=== PATIENT | female | born 1935 | race Caucasian/White ===

== ENCOUNTER 2017-09-06 06:34 | Day surgery (SDC) | payer MEDICARE, OTHER ==
[2017-09-05 11:12] VITALS: BMI 28.7
[2017-09-06 07:30] LABS: #Basophils 0.1 thou/uL (0.0-0.2); #Eosinphils 0.5 thou/uL (0.0-0.7); #Monocytes 0.6 thou/uL (0.11-0.59); #Neutrophils 2.3 thou/uL (1.40-6.50); %Basophils 1.3 % (0.0-1.0); %Eosinophils 8.3 % (0.0-10.0); %Lymphocytes 37.5 % (21.0-51.0); %Monocytes 10.1 % (0.0-10.0); %Neutrophils 42.7 % (42.0-75.0); Hemoglobin 12.5 g/dL (12.0-16.0); Mean Corpuscular HGB CONC 32.3 g/dL (32.0-36.0); Mean Corpuscular Hemoglobin 28.4 pg (27.0-31.0); Mean Corpuscular Volume 87.8 fl (81.0-99.0); Mean Platelet Volume 7.9 fL (7.4-10.4); Platelet Count 247 thou/uL (130-400); RBC Distribution Width 12.9 % (11.5-14.5); White Blood Cell (WBC) Count 5.4 thou/uL (4.8-10.8)
--- NOTE | 2017-09-06 07:41 | RAD ---
CHEST PA AND LATERAL: HISTORY: An 81-year-old female with a history for postop midline sternotomy. Atherosclerosis of the aorta. E vidence for hiatal hernia. Heart size is within normal limits. Mild increased markings bilaterally, but stable. No confluent pneumonia, overt edema, or other acute process. IMPRESSION: No acute intrathoracic disease. Moderate-sized hiatal hernia. Atherosclerosis of the aorta with ect dashawn. Stable from prior study. POS: RIVER
[2017-09-06] MEDS ORDERED: Bupivacaine HCl 0.5%/Epinephrine 1:200,000/PF 30 ml Vial ONE (08:01)
[2017-09-06] MEDS ORDERED: Lidocaine 2% 10 ML INJ ONE (08:01)
[2017-09-06] MEDS ORDERED: Bupivacaine/Epinephrine 0.25% 30 ML VIAL ONE (08:01)
[2017-09-06 08:04] LABS: Anion Gap 11 mmol/L (10-20); BUN (Urea Nitrogen) 14 mg/dL (9.8-20.1); Calc. Creatinine Clearance 67 mL/min (70-130); Calcium 8.9 mg/dL (7.8-10.44); Carbon Dioxide 32 mmol/L (23-31); Chloride 102 mmol/L (98-107); Estimated GFR-MDRD 65; Glucose 92 mg/dL (83-110); Potassium 5.2 mmol/L (3.5-5.1); Sodium 140 mmol/L (136-145)
[2017-09-06] MEDS ORDERED: CEFAZOLIN/Water 2 GM/20 ML SYRINGE ONE (08:23)
[2017-09-06] MEDS ORDERED: Fentanyl 100 MCG/2 ML VIAL ONE (09:25)
--- NOTE | 2017-09-06 10:19 | OP ---
DATE OF PROCEDURE: 09/06/2017 PREOPERATIVE DIAGNOSIS: Painful radial head, left. POSTOPERATIVE DIAGNOSIS: Painful radial head, left. SURGEON: Librado Allison M.D. ANESTHESIA: General. BLOOD LOSS: Minimal. SPECIMEN: None. DRAINS: None. COMPLICATIONS: None. PROCEDURE IN DETAIL: The patient was taken to the operating room where general anesthesia was induce d. Left arm was prepped and draped in usual sterile fashion. Exsanguination, tourniquet was inflate d to 250 mmHg. I infiltrated the skin with Marcaine with epinephrine. Dissection carried down throug h the old scar to the common extensor origin into the joint. The radial head was mobilized and excis ed without difficulty. Marcaine was injected into the soft tissues around the joint. Irrigation per formed. Hemostasis obtained. Tourniquet was released. Soft tissue repaired the capsule with #1 Willie ryl, subcu with 2-0 Vicryl, and the skin was closed with nancy.
--- NOTE | 2017-09-06 12:47 | EKG ---
Test Reason : PREOP Blood Pressure : / mmHG Vent. Rate : 063 BPM Atrial Rate : 063 BPM P-R Int : 218 ms QRS Dur : 106 ms QT Int : 434 ms P-R-T Axes : 051 014 050 degrees QTc Int : 444 ms Sinus rhythm with 1st degree A-V block Otherwise normal ECG When compared with ECG of 22-MAY-2016 12:45, ME interval has increased Incomplete right bundle branch block is no longer Present Confirmed by FELISA NGUYEN ([id number]) on 09/06/2017 12:46:29 PM Referred By: RUPA Confirmed By:FELISA NGUYEN
[2017-09-06] MEDS ORDERED: Dexamethasone 20 MG/5 ML VIAL ONE (15:57)
[2017-09-06] MEDS ORDERED: Ondansetron HCl/PF 4 MG/2 ML Vial ONE (15:57)
[2017-09-06] MEDS ORDERED: Lidocaine 1% PF 5 ML VIAL ONE (15:57)
[2017-09-06] MEDS ORDERED: PROPOFOL 200 MG/20 ML VIAL ONE (15:57)
== END 2017-09-06 11:30 | disposition home or self-care (01) ==
LOC: SDC 06:34
PROVIDERS: ATTEND Orthopaedic Surgery
PROC: 0RP Upper Joints, Removal (ICD-10-PCS; principal; 2017-09-06)
DX: T84.84XA Pain due to internal orthopedic prosthetic devices, implants and grafts, initial encounter (principal); M19.022 Primary osteoarthritis, left elbow; I25.10 Atherosclerotic heart disease of native coronary artery without angina pectoris; F41.9 Anxiety disorder, unspecified; I10 Essential (primary) hypertension; E78.5 Hyperlipidemia, unspecified; G47.33 Obstructive sleep apnea (adult) (pediatric); Z79.82 Long term (current) use of aspirin; Z79.899 Other long term (current) drug therapy; Z79.52 Long term (current) use of systemic steroids
CPT/HCPCS: 71046; 80048; 85025; 93005; 93010; J0670; J1100; J2001; J2405; J2704; J3010

== ENCOUNTER 2018-03-03 12:04 | Inpatient (IN) | payer MEDICARE, OTHER ==
[2018-03-03] MEDS ORDERED: cefTRIAXone\\ROCEPHIN 2 GM VIAL ONE (12:30)
[2018-03-03 12:49] LABS: #Lymphocytes 0.7 thou/uL (1.20-3.40); #Monocytes 0.8 thou/uL (0.11-0.59); #Neutrophils 13.8 thou/uL (1.40-6.50); %Eosinophils 0.1 % (0.0-10.0); %Lymphocytes 4.6 % (21.0-51.0); %Monocytes 5.1 % (0.0-10.0); %Neutrophils 90.2 % (42.0-75.0); Hemoglobin 12.5 g/dL (12.0-16.0); Mean Corpuscular HGB CONC 32.1 g/dL (32.0-36.0); Mean Corpuscular Hemoglobin 28.6 pg (27.0-31.0); Mean Platelet Volume 8.8 fL (7.4-10.4); Platelet Count 237 thou/uL (130-400); RBC Distribution Width 13.1 % (11.5-14.5); Red Blood Cell (RBC) Count 4.37 mill/uL (4.20-5.40); White Blood Cell (WBC) Count 15.3 thou/uL (4.8-10.8)
[2018-03-03 13:15] LABS: ALT (SGPT) 12 U/L (8-55); AST (SGOT) 21 U/L (5-34); Albumin 3.5 g/dL (3.4-4.8); Alkaline Phosphatase 80 U/L (40-150); Anion Gap 13 mmol/L (10-20); BUN (Urea Nitrogen) 15 mg/dL (9.8-20.1); Bilirubin, Total 0.7 mg/dL (0.2-1.2); Calc. Creatinine Clearance 0 mL/min (70-130); Calcium 8.2 mg/dL (7.8-10.44); Carbon Dioxide 20 mmol/L (23-31); Chloride 105 mmol/L (98-107); Estimated GFR-MDRD 49; Globulin 2.6 g/dL (2.4-3.5); Glucose 104 mg/dL (83-110); Protein, Total 6.1 g/dL (6.0-8.3); Sodium 134 mmol/L (136-145)
--- NOTE | 2018-03-03 13:35 | RAD ---
PORTABLE AP CHEST XRAY: DATE: 03/03/2018. HISTORY: Fever and sepsis. COMPARISON: 05/22/2016. FINDINGS: Postsurgical changes related to median sternotomy are again noted. Pacing pads overlie the chest sushant aterally. There is questionable parenchymal change within the right lung base, but this may be artif actual. The lungs otherwise appear clear. Cardiac silhouette is magnified by projection. The pulmo nary vasculature is within normal limits. IMPRESSION: No acute cardiopulmonary process. Pacing pads overlie the chest which limits evaluation. There is q uestionable parenchymal change within the right lung base, but this may be artifactual. Followup radha st x-ray may be beneficial for further evaluation. POS: RIVER
[2018-03-03] MEDS ORDERED: Azithromycin 500 MG VIAL ONE (14:07)
[2018-03-03 15:19] LABS: Bilirubin Negative (Negative); Blood, Urine Negative (Negative); Clarity CLEAR (Clear); Glucose, Urine (Dipstick) Negative (Negative); Leukocyte Negative (Negative); Nitrite Negative (Negative); Protein, Urine (Dipstick) Trace mg/dL (Neg-Trace); Specific Gravity, Urine 1.024 (1.002-1.036); Urobilinogen 0.2 mg/dL (0.2-1.0); pH, Urine 5.5 (5.0-9.0)
[2018-03-03] MEDS ORDERED: Sodium Chloride 0.9% 1,000 ML IV SCH ×2 (16:21→17:00)
[2018-03-03 16:22] VITALS: BMI 30.4
[2018-03-03] MEDS ORDERED: Benzonatate 100 MG CAP PO PRN (18:34)
[2018-03-03] MEDS ORDERED: PROVENTIL INHALER 6.7 G (200 INHALATIONS) INH PRN (18:34)
[2018-03-03] MEDS ORDERED: hydrALAZINE 20 MG/ML VIAL SLOW IVP PRN (18:34)
[2018-03-03] MEDS ORDERED: Diabetic Tussin 200 MG/10 ML UDCUP PO PRN (18:34)
[2018-03-03] MEDS ORDERED: Ondansetron PF 4 MG/2 ML Vial IVP PRN (18:34)
[2018-03-03] MEDS ORDERED: Ondansetron ODT 4 MG TAB PO PRN (18:34)
[2018-03-03] MEDS ORDERED: Acetaminophen 500 MG TAB PO PRN (18:34)
[2018-03-03] MEDS ORDERED: Fluticasone Propionate Nasal Spray 16 gm Bottle NASAL PRN (18:34)
[2018-03-03] MEDS ORDERED: Acetaminophen/Codeine 30-300mg Tablet PO PRN ×2 (18:34→18:58)
[2018-03-03] MEDS ORDERED: Morphine ER 15 MG TAB PO PRN (18:37)
[2018-03-03] MEDS ORDERED: Morphine ER 15 MG TAB PO SCH (18:45)
[2018-03-03] MEDS: Pravastatin Sodium 40 MG TAB PO SCH (20:04)
[2018-03-03] MEDS: Gabapentin 300 MG CAP PO SCH (20:09)
[2018-03-03] MEDS ORDERED: Famotidine 20 MG TAB PO SCH (21:00)
--- NOTE | 2018-03-04 01:14 | HP ---
PRIMARY CARE PROVIDER: Roland Richards MD CHIEF COMPLAINT: Fever and shortness of breath. HISTORY OF PRESENT ILLNESS: This is an 82-year-old female, who presents to [facility] Emergency Department in transport by EMS personnel after EMS were alerted when the patient was noted with fever up to 103.9 degrees Fahrenheit. The patient states she had felt cold symptoms, body aches, mild shortness of breath, and productive cough over the last 3 to 4 days. The patient also noted feeling dizzy and lightheaded with some shortness of breath. The family notified EMS personnel after alerting [facility], at which point the patient was transported to [facility] Emergency Department. During the patient's transport, the patient developed atrial fibrillation with rapid ventricular response with heart rates in the 130s. The patient received IV Cardizem bolus with decreasing heart rate into the 120s. The patient was also noted with hypotension after receiving Cardizem and required IV fluid boluses in the emergency room to maintain systolic blood pressures in the 100 range. The patient denies any known sick contacts or prior history of recurrent pneumonia and states she received influenza vaccine. The patient states she is unsure if she has received the pneumonia vaccination in the last 5 years. The patient denies any specific change to her chronic medication regimen, chronic oxygen use, recent trauma, injury, or hemoptysis. In the emergency room, the patient underwent general evaluation including chest imaging showing questionable infiltrate in the right lower lung zone. The patient was noted with sepsis criteria including tachycardia, elevated white blood cell count, and a temperature of 103.9 degrees Fahrenheit. The patient received IV azithromycin and Rocephin in addition to normal saline x2 L. The patient was transferred to the telemetry unit for further evaluation. PAST MEDICAL HISTORY: 1. Hypertension. 2. Hyperlipidemia. 3. Coronary artery disease. 4. Obstructive sleep apnea. 5. Depression. 6. Chronic narcotic use. 7. Osteoarthritis. PAST SURGICAL HISTORY: 1. Status post bilateral total shoulder replacement. 2. Status post coronary artery bypass grafting x2 vessels. 3. Status post left radial head repair. CURRENT MEDICATIONS: 1. Tylenol No. 4 of 300 mg/60 mg 1 to 2 tablets p.o. q.8 hours p.r.n. 2. Proventil HFA 2 puffs inhaled t.i.d. p.r.n. 3. Enteric-coated aspirin 81 mg p.o. daily. 4. Vitamin D3 of 2000 units p.o. daily. 5. Flonase nasal spray 2 sprays inhaled daily. 6. Lasix 40 mg p.o. daily. 7. Gabapentin 300 mg p.o. q.8 hours. 8. Losartan 25 mg p.o. daily. 9. Morphine sulfate 15 mg extended release p.o. q.8 hours p.r.n. 10. Multivitamin 1 tablet p.o. daily. 11. Pravachol 80 mg p.o. at bedtime. 12. Coenzyme Q10 one capsule p.o. daily. 13. Effexor 75 mg p.o. daily. ALLERGIES: NO KNOWN DRUG ALLERGIES. FAMILY HISTORY: No inheritable diseases per the patient report. SOCIAL HISTORY: The patient resides in [place], [place]. , accompanied by her grandson in the hospital. No alcohol, tobacco, or illicit drug use. Functional of all activities of daily living. Ambulates without assistive device. REVIEW OF SYSTEMS: CONSTITUTIONAL: Negative for weight loss or gain, ability to conduct usual activities. SKIN: Negative for rash, itching. EYES: Negative for double vision, pain. ENT/MOUTH: Negative for nose bleeding, neck stiffness, pain, tenderness. CARDIOVASCULAR: Negative for palpitations, dyspnea on exertion, orthopnea. RESPIRATORY: Negative for shortness of breath, wheezing, cough, hemoptysis, fever or night sweats. GASTROINTESTINAL: Negative for poor appetite, abdominal pain, heartburn, nausea, vomiting, constipation, or diarrhea. GENITOURINARY: Negative for urgency, frequency, dysuria, nocturia. MUSCULOSKELETAL: Negative for pain, swelling. NEUROLOGIC/PSYCHIATRIC: Negative for anxiety, depression. ALLERGY/IMMUNOLOGIC: Negative for skin rash, bleeding tendency. Otherwise, negative except as stated per HPI. PHYSICAL EXAMINATION: VITAL SIGNS: On admission; blood pressure 121/72, pulse 118, respiratory rate 18, temperature 99.1 degrees Fahrenheit, T-max of 103.9 degrees Fahrenheit, and O2 saturation 94% on room air. GENERAL APPEARANCE: This is an 82-year-old female, alert and oriented x3, pleasant, conversant, in no acute distress. HEENT: Pupils are equal, round, and reactive to light and accommodation. Extraocular muscles are intact. No scleral icterus. No conjunctival injection. Nares patent. OP is clear. Teeth in good repair. NECK: Supple. No cervical adenopathy. No thyromegaly. No carotid bruits. No JVD appreciated. Cervical spine with full active and passive range of motion. No meningeal signs appreciated. CHEST: Lungs with bibasilar coarse breath sounds. CARDIOVASCULAR: S1 and S2 with irregular rate and rhythm. No murmur or rub appreciated. ABDOMEN: Rounded, soft, nontender, and nondistended. Bowel sounds are positive in all 4 quadrants. There is no hepatosplenomegaly. No abdominal bruits. No rebound or guarding appreciated. EXTREMITIES: Warm and dry with fair turgor. Mild edema to the mid shins bilaterally. Pulses are palpable distally at the dorsalis pedis, posterior tibial, and popliteal arteries bilaterally. Capillary refill less than 2 seconds. NEUROLOGIC: Cranial nerves 2 through 12 are grossly intact. No focal or lateralizing signs appreciated. PERTINENT LAB AND X-RAY FINDINGS: Sodium 134, potassium 4.0, chloride 105, CO2 of 20, BUN 15, creatinine 1.07, estimated GFR 49, and glucose 104. Lactic acid level 1.6. LFTs within normal limits. CBC showed a white blood cell count of 15.3, hemoglobin 12.5, hematocrit 39, and platelet count 237 with 90% neutrophilia. Urinalysis showed trace ketones. Influenza A/B antigen, dated 03/03/2018, negative. Portable chest x-ray dated 03/03/2018 showed questionable parenchymal changes in the right lung base. EKG dated 03/03/2018 by my interpretation shows atrial fibrillation with rapid ventricular response. Heart rates in the 130s. Attenuated R-waves noted in the precordial leads. Normal axis. ASSESSMENT AND PLAN: 1. Sepsis secondary to pneumonia. We will continue general sepsis protocol. Initial lactic acid level normal. We will continue IV fluids and IV antibiotics as outlined. 2. Right lower lobe community-acquired pneumonia. Suspect bacterial in nature with pneumococcal species. Continue Levaquin 750 mg IV q.24 hours. Blood cultures pending x2. Continue general pulmonary supportive management. Bronchodilator therapy. 3. Atrial fibrillation with rapid ventricular response. Appears new onset. We will consult Cardiology Service for further evaluation. Check 2D transthoracic echocardiogram, magnesium, and TSH level. Continue rate control measures. 4. Hypertension. Resume home antihypertensive regimen and monitor clinical response. 5. Chronic narcotic therapy. We will monitor for signs of withdrawal. Morphine sulfate 15 mg p.o. q.8 hours p.r.n. 6. Prophylaxis. Sequential compression devices while in bed. Pepcid 20 mg p.o. b.i.d. 7. Code status is full. Surrogate medical decision maker is the patient's spouse. Job ID: [id number]
[2018-03-04] MEDS: Gabapentin 300 MG CAP PO SCH ×3 (05:32→21:05)
[2018-03-04 06:16] LABS: Anion Gap 9 mmol/L (10-20); BUN (Urea Nitrogen) 14 mg/dL (9.8-20.1); Calc. Creatinine Clearance 70 mL/min (70-130); Calcium 8.3 mg/dL (7.8-10.44); Carbon Dioxide 22 mmol/L (23-31); Chloride 108 mmol/L (98-107); Estimated GFR-MDRD 64; Glucose 86 mg/dL (83-110); Magnesium 1.9 mg/dL (1.6-2.6); Sodium 135 mmol/L (136-145)
[2018-03-04 07:39] LABS: Hemoglobin 11.4 g/dL (12.0-16.0); Mean Corpuscular HGB CONC 31.4 g/dL (32.0-36.0); Mean Corpuscular Hemoglobin 28.1 pg (27.0-31.0); Mean Corpuscular Volume 89.5 fL (78.0-98.0); Mean Platelet Volume 9.3 fL (7.4-10.4); Platelet Count 160 thou/uL (130-400); RBC Distribution Width 13.3 % (11.5-14.5); Red Blood Cell (RBC) Count 4.06 mill/uL (4.20-5.40); White Blood Cell (WBC) Count 8.6 thou/uL (4.8-10.8)
[2018-03-04 07:47] LABS: Band 5 % (5-11); Lymphocytes 19 % (21-51); MDiff Complete? YES; Monocytes 4 % (0-10); Neutrophil 72 % (42-75); PLT Morphology Comment Appears Adequate; Polychromasia SLIGHT = 2-3 cells (100X) (0-2/hpf)
[2018-03-04] MEDS: Losartan 25 MG TAB PO SCH (08:22)
[2018-03-04] MEDS: Furosemide 40 MG TAB PO SCH (08:22)
[2018-03-04] MEDS: Aspirin 81 mg Enteric Coated Tablet PO SCH (08:23)
[2018-03-04] MEDS ORDERED: Prevnar 13-Val Conj/PF 0.5 ML SYRINGE IM ONE (09:00)
[2018-03-04] MEDS ORDERED: Enoxaparin Sodium 80 MG/0.8 ML SYRINGE SC SCH ×2 (10:27→11:30)
[2018-03-04] MEDS ORDERED: Flecainide 50 MG TAB PO SCH ×2 (10:32→11:30)
[2018-03-04] MEDS ORDERED: Digoxin 0.5 MG/2 ML AMP SLOW IVP SCH (11:30)
--- NOTE | 2018-03-04 15:21 | PDOC.PN ---
- Subjective Encounter Start Date: 03/04/18 Encounter Start Time: 15:20 Subjective: f/u for CAP, sepsis and A-fib RVR. Tx with Levaquin and bronchodilators. -: Remains in A-fib RVR on Digoxin, Tambocor and Lovenox. - Objective Resuscitation Status - Order Detail: 03/03/18 18:26 Resuscitation Status Routine Resuscitation Status: FULL: Full Resuscitation MAR Reviewed: Yes Vital Signs & Weight: Vital Signs (12 hours) Temp Pulse Resp BP Pulse Ox 03/04/18 11:50 104 H 18 144/82 H 98 03/04/18 11:40 98.7 F 128 H 20 119/68 98 03/04/18 08:15 99.0 F 128 H 20 143/82 H 93 L 03/04/18 03:33 99 F 99 20 127/76 92 L Weight Weight 191 lb 6.4 oz I&O: 03/03/18 03/04/18 03/05/18 06:59 06:59 06:59 Intake Total 1835 Output Total 300 Balance 1535 Result Diagrams: 03/04/18 05:31 03/04/18 05:31 Additional Labs: Microbiology 03/03/18 12:32 Nasal swab Influenza Types A,B Direct EIA - Final 03/03/18 12:19 Venous blood - Left Hand Blood Culture - Preliminary Specimen has been received and culture in progress. No Growth to date. 03/03/18 12:19 Venous blood - Left Arm Blood Culture - Preliminary Specimen has been received and culture in progress. No Growth to date. Laboratory Tests 03/03/18 03/03/18 03/04/18 12:27 12:27 05:31 WBC 15.3 H Hgb 12.5 Sodium 134 L Magnesium 1.9 TSH 3rd Generation 03/04/18 05:31 WBC Hgb Sodium Magnesium TSH 3rd Generation 1.4064 EKG Reviewed by me: Yes (Tele - A-fib in low 100's) Phys Exam - Physical Examination Constitutional: NAD HEENT: PERRLA, sclera anicteric, oral pharynx no lesions Neck: no nodes, no JVD, supple, full ROM bibasilar coarse sounds Respiratory: no wheezing, clear to auscultation bilateral tachycardic S1, S2 Cardiovascular: irregular Gastrointestinal: soft, non-tender, no distention, positive bowel sounds Musculoskeletal: no edema, pulses present Neurological: normal sensation, moves all 4 limbs Psychiatric: normal affect, A&O x 3 Skin: normal turgor, cap refill <2 seconds Dx/Plan (1) Sepsis Code(s): A41.9 - SEPSIS, UNSPECIFIED ORGANISM Status: Acute Qualifiers: Sepsis type: Pneumococcus Qualified Code(s): A40.3 - Sepsis due to Streptococcus pneumoniae Comment: Suspected due to strep pneumo spp, continue Levaquin 750mg IV q48h (2) Atrial fibrillation with RVR Code(s): I48.91 - UNSPECIFIED ATRIAL FIBRILLATION Status: Acute Comment: Rate variable, continue Digoxin, Tambocor, Lovenox, 2D echo pending (3) PNA (pneumonia) Code(s): J18.9 - PNEUMONIA, UNSPECIFIED ORGANISM Status: Acute Qualifiers: Pneumonia type: due to Pneumococcus Laterality: bilateral Comment: Suspected bacterial PNA with steptococcal spp, pulmonary supportive measures, Levaquin 750mg IV q48h (4) Chronic narcotic use Code(s): F11.90 - OPIOID USE, UNSPECIFIED, UNCOMPLICATED Status: Chronic Comment: Continue Morphine sulfate (5) HTN (hypertension) Code(s): I10 - ESSENTIAL (PRIMARY) HYPERTENSION Status: Chronic Qualifiers: Hypertension type: essential hypertension Qualified Code(s): I10 - Essential (primary) hypertension Comment: Continue home BP regimen, titrate to optimal response - Plan continue antibiotics, PT/OT, social services coordinator, respiratory therapy, out of bed/ ambulate, DVT proph w/SCDs Stable currently -: Continue Levaquin 750mg q48h -: Continue rate-control strategy with Digoxin/Tambocor -: Continue Lovenox -: 2D echo pending * Likely home in 24-48h
[2018-03-04] MEDS: Digoxin 0.5 MG/2 ML AMP SLOW IVP SCH ×2 (17:50→23:44)
--- NOTE | 2018-03-04 18:42 | CON ---
DATE OF CONSULTATION: 03/04/2018 INDICATION FOR CONSULTATION: An 82-year-old female with a new onset atrial fibrillation. HISTORY OF PRESENT ILLNESS: This is a very pleasant 82-year-old female, who I saw originally back in January 15, 2018. She previously was followed by Dr. Morrell. She underwent bypass surgery in the past due to severe 2-vessel coronary artery disease, this was in 2013. Since that time, apparently she has been doing quite well. She has had some episodes of some chest discomfort and underwent stress testing also on January 15, 2018. Upon nuclear evaluation, it was not found to have any evidence of ischemia. She at that time also had a normal EKG, which showed normal sinus rhythm. Her ejection fraction was 61% by nuclear study and there was no evidence of ischemia or any wall motion abnormalities. She, apparently over the weekend, thought she was getting a cold. She felt cold all day on Saturday and then eventually called her neighbor, who found that she had a temperature of a 103.5, and then the primary care physician was called and she was advised to go to the emergency room. On the way to the emergency room apparently by ambulance, she developed atrial fibrillation with a rapid ventricular response. At this time, she continues to be in atrial fibrillation. Her heart rate this morning was still somewhat tachycardic. She then placed on IV diltiazem. Also notably, she has had hypotension associated with this. At present, she is on no IV diltiazem that I can determine. She is not on any medications for lowering of the heart rate. She has been given antibiotics. Otherwise, she is not on any beta blockers or on diltiazem or even digoxin. She was asymptomatic with a rapid heart rate and she still remains asymptomatic. She says she was coughing up a little bit of dark brown material, but she was actually coughing over the weekend also. She denied any chest pain or shortness of breath. PAST MEDICAL HISTORY: Her past medical history is significant for coronary artery disease, bypass grafting in 2013 as noted. She had a recent stress test, which was unremarkable. She has hypertension. She had a tubal . She had a tonsillectomy, left rotator cuff repair, and right elbow joint replacement. She has history of hypercholesterolemia. She has arthritis with knee pain. ALLERGIES: NONE. MEDICATIONS: Her medications prior to admission included; 1. Norvasc 10 mg a day. 2. Losartan 100 mg a day. 3. CoQ10. 4. Venlafaxine ER 75 mg once a day. 5. Vitamin D3. 6. Aspirin 81 mg a day. 7. Meloxicam 15 mg a day. 8. Pravastatin 80 mg a day. 9. Gabapentin 300 mg t.i.d. 10. Morphine 15 mg immediate release tablet as needed once every 12 hours. 11. Mirtazapine 15 mg once a day before bedtime. FAMILY HISTORY: Noncontributory. REVIEW OF SYSTEMS: A 12-point review of system is unremarkable, except what is noted in the history of present illness. She mainly complains of occasional aches and pains. She had a coughing, but she was asymptomatic with the atrial fibrillation. She denies any other symptoms. She has been taking care of her son as well as her . PHYSICAL EXAMINATION: GENERAL: Reveals a well-developed, well-nourished, very pleasant female. VITAL SIGNS: Her blood pressure is 142/82, heart rate is anywhere between 100 to 128, temperature today is 99, and O2 saturation is 93%. HEENT: Exam shows the head to be normocephalic and atraumatic. Carotid pulses are present. I did not hear any significant bruits. CHEST: I did not hear any significant rales, rhonchi, or wheezing. CARDIOVASCULAR: Reveals a tachycardia, which is irregular. There were no gross murmurs noted. ABDOMEN: Shows obesity with positive bowel sounds. No organomegaly or masses were noted. EXTREMITIES: Femoral pulses are present. Popliteal pulses are present. Pedal pulses somewhat difficult to palpate. She has a well-healed surgical incision of the left leg after saphenous vein graft retrieval. She has also well-healed incisions of the knees after apparently knee surgery. SKIN: Warm and dry. NEUROLOGIC: She appears to be fully intact. She has normal strength and normal tone. She does not need assistance to either sit up or get out of the bed. IMPRESSION AND PLAN: 1. New onset atrial fibrillation with rapid ventricular response. We will need to start oral medications to the heart rate, most likely this was exacerbated by her probable pneumonia or infection with a temperature of 103. There were no significant gross abnormalities noted on the chest x-ray, that would indicate pneumonia. At this time, we will decide, which medications to use. Hopefully convert her from her atrial fibrillation back to sinus rhythm as soon as possible. We will start her on Multaq to see if this will convert her back to sinus rhythm. 2. Hypertension. We will need also to address her medications and make sure she is taking her medications and try to keep at least the systolic blood pressure under 140, preferably under 130. 3. Febrile state of uncertain etiology. This is being evaluated by the primary care service. 4. Her kidney function does not appear to be significantly abnormal. She did have an elevated white blood cell count for her possible sepsis 15.3, this morning is down to 8.6. She has been given antibiotics. 5. Coronary artery disease, which appears to be stable. She had bypass surgery in 2013. She had a recent negative stress test. We will be more than happy to continue to follow the patient with you. We will try to convert her from atrial fibrillation back to sinus rhythm as soon as possible. Also would advise that she have at least anticoagulation in the meantime. We can try subcu Lovenox. The last echocardiogram that was in record was in 2013, which showed ejection fraction 55% with moderate tricuspid valve regurgitation, mild mitral valve regurgitation, and mild aortic valve regurgitation. She has a normal ejection fraction by echocardiogram and by stress testing just recently and had a normal EKG also on January 15, 2018 without any evidence of ischemia and no other significant abnormalities. She did have an RSR prime in V1 and V2, but otherwise unremarkable EKG. Obtain echocardiogram for evaluation of her left atrial size to see if this is increased and if so, she may need to opt for perhaps EP consultation and ablation of the atrial fibrillation. As far as her other medical problems are concerned, these will be dealt with by the primary care service. Job ID: [id number]
[2018-03-04] MEDS: Famotidine 20 MG TAB PO SCH (20:54)
[2018-03-04] MEDS: Enoxaparin Sodium 80 MG/0.8 ML SYRINGE SC SCH (20:54)
[2018-03-04] MEDS: Pravastatin Sodium 40 MG TAB PO SCH (20:54)
[2018-03-04] MEDS: Flecainide 50 MG TAB PO SCH (20:54)
[2018-03-04] MEDS: Temazepam 15 MG CAP PO SCH (20:54)
[2018-03-05] MEDS: Gabapentin 300 MG CAP PO SCH ×3 (05:30→21:09)
[2018-03-05] MEDS ORDERED: Clopidogrel Bisulfate 75 MG TAB ONE (07:34)
[2018-03-05] MEDS: Digoxin 0.125 MG TAB PO SCH (08:34)
[2018-03-05] MEDS: Flecainide 50 MG TAB PO SCH ×2 (08:37→21:07)
[2018-03-05] MEDS: Furosemide 40 MG TAB PO SCH (08:38)
[2018-03-05] MEDS: Aspirin 81 mg Enteric Coated Tablet PO SCH (08:38)
[2018-03-05] MEDS: Losartan 25 MG TAB PO SCH (08:38)
[2018-03-05] MEDS: Enoxaparin Sodium 80 MG/0.8 ML SYRINGE SC SCH ×2 (08:39→21:05)
--- NOTE | 2018-03-05 11:22 | PDOC.CTH ---
<Anju Cesar - Last Filed: 03/05/18 11:31> Cardiology Progress Note - Subjective The pt seen and examined. No overnight events. No cardiac complaints. - Objective Vital Signs Temp Pulse Resp BP Pulse Ox 03/05/18 08:34 82 03/05/18 08:00 98.1 F 82 18 162/88 H 94 L 03/05/18 04:00 97.9 F 80 17 103/59 L 93 L 03/04/18 23:44 84 Weight 190 lb 9.6 oz 03/04/18 03/05/18 03/06/18 06:59 06:59 06:59 Intake Total 1835 1220 Output Total 300 2100 Balance 1535 -880 - Physical Examination General/Neuro: alert & oriented x3 Neck: no JVD present Lungs: CTA Heart: RRR Abdomen: soft Extremities: other: (no edema) - Telemetry Telemetry Rhythm: AFib 60-70s - Labs Result Diagrams: 03/04/18 05:31 03/04/18 05:31 - Assessment/Plan 1. Afib with RVR - Well cont. HR with Digoxin 0.125mg qd and Flecainide 50mg BID. On Lovenox BID. Will start Coreg 3.125mg BID. Plan MOODY and DCCV tomorrow by Dr Zepeda. 2. CAD with hx of CABG in 2013 - stable with ASA, statin, and ARB. Will start BBlocker from today. 3. Sepsis - On ABX IV, managed by PCP 4. Chronic diastolic HF - Echo on 03/04/18 showed EF 50-55% and Restrictive diastolic dysfunction. Stable with Lasix and ARB; will start low dose BBlocker from today. 5. HTN - stable 6. Hyperlipidemia - on Statin MAR reviewed * Echo on 03/04/18 showed EF 50-55%, Restrictive diastolic dysfunction, mild ERV, mod-severe dilated LA, mild-mod MR, mild AR, mild MT, and severe TR. * Plan for MOODY and DCCV tomorrow by Dr Zepeda. Review of Systems - Review of Systems Constitutional: reports: no symptoms reported EENTM: reports: no symptoms reported Respiratory: reports: no symptoms reported Cardiac (ROS): reports: no symptoms reported ABD/GI: reports: no symptoms reported : reports: no symptoms reported Musculoskeletal: reports: no symptoms reported <Zepeda,G Raj - Last Filed: 03/05/18 13:10> Cardiology Progress Note - Objective Vital Signs Temp Pulse Resp BP Pulse Ox 03/05/18 08:34 82 03/05/18 08:00 98.1 F 82 18 162/88 H 94 L 03/05/18 04:00 97.9 F 80 17 103/59 L 93 L Weight 190 lb 9.6 oz 03/04/18 03/05/18 03/06/18 06:59 06:59 06:59 Intake Total 1835 1220 Output Total 300 2100 Balance 1535 -880 - Labs Result Diagrams: 03/04/18 05:31 03/04/18 05:31 - Assessment/Plan pt.seen and eval.by me.Saige with the A/P by the [employer].If she does not converrt to NSR by AM then plan for cardioversion. Chest clear anteriorly.Irreg/irreg.
[2018-03-05] MEDS ORDERED: Carvedilol 3.125 MG TAB PO SCH (12:30)
--- NOTE | 2018-03-05 12:52 | PDOC.PN ---
- Subjective Encounter Start Date: 03/05/18 Encounter Start Time: 12:40 Subjective: f/u for CAP, sepsis and A-fib rate controlled currently. Feels better -: overall. Receiving Levaquin and Albuterol. - Objective Resuscitation Status - Order Detail: 03/03/18 18:26 Resuscitation Status Routine Resuscitation Status: FULL: Full Resuscitation MAR Reviewed: Yes Vital Signs & Weight: Vital Signs (12 hours) Temp Pulse Resp BP Pulse Ox 03/05/18 08:34 82 03/05/18 08:00 98.1 F 82 18 162/88 H 94 L 03/05/18 04:00 97.9 F 80 17 103/59 L 93 L Weight Weight 190 lb 9.6 oz I&O: 03/04/18 03/05/18 03/06/18 06:59 06:59 06:59 Intake Total 1835 1220 Output Total 300 2100 Balance 1535 -880 Result Diagrams: 03/04/18 05:31 03/04/18 05:31 Additional Labs: Microbiology 03/03/18 12:32 Nasal swab Influenza Types A,B Direct EIA - Final 03/03/18 12:19 Venous blood - Left Hand Blood Culture - Preliminary Specimen has been received and culture in progress. No Growth to date. 03/03/18 12:19 Venous blood - Left Hand Blood Culture - Preliminary NO GROWTH AT 48 HOURS 03/03/18 12:19 Venous blood - Left Arm Blood Culture - Preliminary Specimen has been received and culture in progress. No Growth to date. 03/03/18 12:19 Venous blood - Left Arm Blood Culture - Preliminary NO GROWTH AT 48 HOURS Laboratory Tests 03/03/18 03/03/18 03/04/18 12:27 12:27 05:31 WBC 15.3 H Hgb 12.5 Sodium 134 L Magnesium 1.9 TSH 3rd Generation 03/04/18 05:31 WBC Hgb Sodium Magnesium TSH 3rd Generation 1.4064 Radiology Reviewed by me: Yes (2D echo - EF 50-55%, diast dysfxn, severe TR, RYLIE , mod MR) EKG Reviewed by me: Yes (Tele - A-fib in 70's) Phys Exam - Physical Examination Constitutional: NAD HEENT: PERRLA, sclera anicteric, oral pharynx no lesions Neck: no nodes, no JVD, supple, full ROM Respiratory: no wheezing, no rales, no rhonchi, clear to auscultation bilateral II/ LYNN LUSB, S1, S2 Cardiovascular: no rub, gallop, irregular Gastrointestinal: soft, non-tender, no distention, positive bowel sounds Musculoskeletal: no edema, pulses present Neurological: normal sensation, moves all 4 limbs Psychiatric: A&O x 3 Skin: normal turgor, cap refill <2 seconds Dx/Plan (1) Sepsis Code(s): A41.9 - SEPSIS, UNSPECIFIED ORGANISM Status: Acute Qualifiers: Sepsis type: Pneumococcus Qualified Code(s): A40.3 - Sepsis due to Streptococcus pneumoniae Comment: Suspected due to strep pneumo spp, continue Levaquin 750mg IV q48h (2) Atrial fibrillation with RVR Code(s): I48.91 - UNSPECIFIED ATRIAL FIBRILLATION Status: Acute Comment: Rate variable, continue Digoxin, Tambocor, Lovenox, plan for MOODY/cardioversion on 03/06/18 (3) PNA (pneumonia) Code(s): J18.9 - PNEUMONIA, UNSPECIFIED ORGANISM Status: Acute Qualifiers: Pneumonia type: due to Pneumococcus Laterality: bilateral Comment: Suspected bacterial PNA with steptococcal spp, pulmonary supportive measures, Levaquin 750mg IV q48h (4) Chronic narcotic use Code(s): F11.90 - OPIOID USE, UNSPECIFIED, UNCOMPLICATED Status: Chronic Comment: Continue Morphine sulfate (5) HTN (hypertension) Code(s): I10 - ESSENTIAL (PRIMARY) HYPERTENSION Status: Chronic Qualifiers: Hypertension type: essential hypertension Qualified Code(s): I10 - Essential (primary) hypertension Comment: Continue home BP regimen, titrate to optimal response - Plan plan discussed w/ family, continue antibiotics, social worker health services, respiratory therapy, out of bed/ambulate, DVT proph w/SCDs Stable currently -: Continue Levaquin IV another 24h -: Plan for MOODY/Cardioversion on 03/06/18 -: continue Lovenox -: continue Tambocor/Digoxin for rate control * Lab: Stool hemoccult
--- NOTE | 2018-03-05 15:29 | EKG ---
Test Reason : Blood Pressure : / mmHG Vent. Rate : 138 BPM Atrial Rate : 468 BPM P-R Int : 000 ms QRS Dur : 090 ms QT Int : 324 ms P-R-T Axes : 000 005 123 degrees QTc Int : 490 ms Atrial fibrillation with rapid ventricular response RSR' or QR pattern in V1 suggests right ventricular conduction delay Nonspecific ST and T wave abnormality , probably digitalis effect Abnormal ECG Confirmed by ARNOLD CRAMER, FRANCIS ([id number]), managing editor GLEN LEVIN ([id number]) on 03/05/2018 3:29:02 PM Referred By: Confirmed By:FRANCIS BARRETT MD
[2018-03-05] MEDS: Carvedilol 3.125 MG TAB PO SCH (17:49)
[2018-03-05] MEDS: Temazepam 15 MG CAP PO SCH (21:06)
[2018-03-05] MEDS: Famotidine 20 MG TAB PO SCH (21:07)
[2018-03-05] MEDS: Pravastatin Sodium 40 MG TAB PO SCH (21:07)
[2018-03-06] MEDS: Gabapentin 300 MG CAP PO SCH ×3 (06:36→20:31)
[2018-03-06] MEDS ORDERED: PROPOFOL 20 ML ONE (07:51)
--- NOTE | 2018-03-06 08:37 | OP ---
ELECTRICAL CARDIOVERSION: Date: 03/06/18 This is an 82-year-old female who presented with new onset atrial fibrillation. She was advised to un dergo electrical cardioversion as she has not converted back to sinus rhythm with medical management. She was taken to the recovery area where she underwent short-acting propofol. Using one attempt at 2 00 joules, she was successfully converted back to normal sinus rhythm. There were no complications of difficulties encountered. The patient tolerated the procedure well. IMPRESSION: Atrial fibrillation successfully converted to normal sinus rhythm.
[2018-03-06] MEDS: Aspirin 81 mg Enteric Coated Tablet PO SCH (09:41)
[2018-03-06] MEDS: Carvedilol 3.125 MG TAB PO SCH ×2 (09:41→16:46)
[2018-03-06] MEDS: Enoxaparin Sodium 80 MG/0.8 ML SYRINGE SC SCH (09:41)
[2018-03-06] MEDS: Digoxin 0.125 MG TAB PO SCH (09:41)
[2018-03-06] MEDS: Flecainide 50 MG TAB PO SCH ×2 (09:42→20:30)
[2018-03-06] MEDS: Losartan 25 MG TAB PO SCH (09:42)
[2018-03-06] MEDS: Furosemide 40 MG TAB PO SCH (09:42)
[2018-03-06] MEDS ORDERED: PROPOFOL 200 MG/20 ML VIAL ONE (13:42)
--- NOTE | 2018-03-06 15:25 | PDOC.PN ---
- Subjective Encounter Start Date: 03/06/18 Encounter Start Time: 15:15 Subjective: f/u for A-fib s/p cardioversion with current SR. Feels ok overall. -: No BM x > 1week. - Objective Resuscitation Status - Order Detail: 03/03/18 18:26 Resuscitation Status Routine Resuscitation Status: FULL: Full Resuscitation MAR Reviewed: Yes Vital Signs & Weight: Vital Signs (12 hours) Temp Pulse Resp BP Pulse Ox 03/06/18 11:55 98.9 F 64 16 112/59 L 94 L 03/06/18 09:22 96 03/06/18 09:17 97.4 F L 61 16 147/67 H 96 03/06/18 03:45 98.3 F 72 12 125/77 92 L Weight Weight 187 lb I&O: 03/05/18 03/06/18 03/07/18 06:59 06:59 06:59 Intake Total 1220 960 145 Output Total 2100 1800 0 Balance -880 -840 145 Result Diagrams: 03/04/18 05:31 03/04/18 05:31 Additional Labs: Microbiology 03/03/18 12:32 Nasal swab Influenza Types A,B Direct EIA - Final 03/03/18 12:19 Venous blood - Left Hand Blood Culture - Preliminary Specimen has been received and culture in progress. No Growth to date. 03/03/18 12:19 Venous blood - Left Hand Blood Culture - Preliminary NO GROWTH AT 48 HOURS 03/03/18 12:19 Venous blood - Left Arm Blood Culture - Preliminary Specimen has been received and culture in progress. No Growth to date. 03/03/18 12:19 Venous blood - Left Arm Blood Culture - Preliminary NO GROWTH AT 48 HOURS Laboratory Tests 03/03/18 03/03/18 03/04/18 12:27 12:27 05:31 WBC 15.3 H Hgb 12.5 Sodium 134 L Magnesium 1.9 TSH 3rd Generation 03/04/18 05:31 WBC Hgb Sodium Magnesium TSH 3rd Generation 1.4064 Radiology Reviewed by me: Yes (2D echo - EF 55%, diast dysfn, severe LAE) EKG Reviewed by me: Yes (Tele - SR) Phys Exam - Physical Examination Constitutional: NAD HEENT: PERRLA, sclera anicteric, oral pharynx no lesions Neck: no nodes, no JVD, supple, full ROM Respiratory: no wheezing, no rales, no rhonchi, clear to auscultation bilateral II/ LNYN, S1, S2 Cardiovascular: RRR, no rub, gallop Gastrointestinal: soft, non-tender, no distention, positive bowel sounds Musculoskeletal: no edema, pulses present Neurological: normal sensation, moves all 4 limbs Psychiatric: A&O x 3 Skin: normal turgor, cap refill <2 seconds Dx/Plan (1) Sepsis Code(s): A41.9 - SEPSIS, UNSPECIFIED ORGANISM Status: Acute Qualifiers: Sepsis type: Pneumococcus Qualified Code(s): A40.3 - Sepsis due to Streptococcus pneumoniae Comment: Suspected due to strep pneumo spp, change Levaquin 750mg po q48h (2) Atrial fibrillation with RVR Code(s): I48.91 - UNSPECIFIED ATRIAL FIBRILLATION Status: Acute Comment: Current SR s/p cardioversion, continue Digoxin, Tambocor, Lovenox (3) PNA (pneumonia) Code(s): J18.9 - PNEUMONIA, UNSPECIFIED ORGANISM Status: Acute Qualifiers: Pneumonia type: due to Pneumococcus Laterality: bilateral Comment: Suspected bacterial PNA with steptococcal spp, pulmonary supportive measures, Levaquin 750mg po q48h (4) Chronic narcotic use Code(s): F11.90 - OPIOID USE, UNSPECIFIED, UNCOMPLICATED Status: Chronic Comment: Continue Morphine sulfate (5) HTN (hypertension) Code(s): I10 - ESSENTIAL (PRIMARY) HYPERTENSION Status: Chronic Qualifiers: Hypertension type: essential hypertension Qualified Code(s): I10 - Essential (primary) hypertension Comment: Continue home BP regimen, titrate to optimal response - Plan continue antibiotics, case management social worker, out of bed/ambulate, DVT proph w/SCDs Stable currently -: Convert Levaquin 750mg po daily -: Miralax/Senna today -: OOB/ambulate -: Start Xarelto 20mg po daily in am * Likely d/c home in am
[2018-03-06] MEDS ORDERED: Polyethylene Glycol 3350 17 GM Packet PO SCH (17:00)
--- NOTE | 2018-03-06 17:37 | PDOC.CTH ---
Cardiology Progress Note - Subjective No complaints. No new events over night. - Objective Vital Signs Temp Pulse Resp BP Pulse Ox 03/06/18 16:40 97.9 F 59 L 16 134/61 96 03/06/18 11:55 98.9 F 64 16 112/59 L 94 L 03/06/18 09:22 96 03/06/18 09:17 97.4 F L 61 16 147/67 H 96 Weight 187 lb 03/05/18 03/06/18 03/07/18 06:59 06:59 06:59 Intake Total 1220 960 145 Output Total 2100 1800 0 Balance -880 -840 145 - Physical Examination General/Neuro: alert & oriented x3 Neck: no JVD present Lungs: CTA Heart: other: (irreg/irreg.) Abdomen: NT/ND - Labs Result Diagrams: 03/04/18 05:31 03/04/18 05:31 - Assessment/Plan 1. Afib with RVR - Well cont. HR with Digoxin 0.125mg qd and Flecainide 50mg BID. On Lovenox BID. Will start Coreg 3.125mg BID. Plan DCCV today. 2. CAD with hx of CABG in 2013 - stable with ASA, statin, and ARB. Will start BBlocker from today. 3. Sepsis - On ABX IV, managed by PCP 4. Chronic diastolic HF - Echo on 03/04/18 showed EF 50-55% and Restrictive diastolic dysfunction. Stable with Lasix and ARB; will start low dose BBlocker from today. 5. HTN - stable 6. Hyperlipidemia - on Statin MAR reviewed * Echo on 03/04/18 showed EF 50-55%, Restrictive diastolic dysfunction, mild ERV, mod-severe dilated LA, mild-mod MR, mild AR, mild [place], and severe TR.
[2018-03-06] MEDS: Famotidine 20 MG TAB PO SCH (20:30)
[2018-03-06] MEDS: Pravastatin Sodium 40 MG TAB PO SCH (20:30)
[2018-03-06] MEDS: Senokot S 8.6-50 MG TAB PO SCH (20:31)
[2018-03-06] MEDS: Temazepam 15 MG CAP PO SCH (20:31)
[2018-03-06] MEDS ORDERED: Enoxaparin Sodium 80 MG/0.8 ML SYRINGE SC SCH (21:00)
[2018-03-07] MEDS: Gabapentin 300 MG CAP PO SCH (05:40)
[2018-03-07] MEDS ORDERED: Rivaroxaban 10 MG TAB PO SCH (06:00)
[2018-03-07 08:48] VITALS: TEMP 98.2
[2018-03-07] MEDS: Losartan 25 MG TAB PO SCH (08:48)
[2018-03-07] MEDS: Aspirin 81 mg Enteric Coated Tablet PO SCH (08:49)
[2018-03-07] MEDS: Furosemide 40 MG TAB PO SCH (08:49)
[2018-03-07] MEDS: Senokot S 8.6-50 MG TAB PO SCH (08:49)
[2018-03-07] MEDS ORDERED: Losartan 25 MG TAB PO SCH (09:00)
--- NOTE | 2018-03-07 09:00 | PDOC.CTH ---
Cardiology Progress Note - Subjective The pt seen and examined. No overnight events. No cardiac complaints. - Objective Vital Signs Temp Pulse Resp BP BP Pulse Ox 03/07/18 08:42 98.2 F 58 L 18 178/79 H 96 03/07/18 03:45 97.9 F 60 19 161/70 H 92 L Weight 189 lb 03/06/18 03/07/18 03/08/18 06:59 06:59 06:59 Intake Total 960 645 Output Total 1800 500 Balance -840 145 - Physical Examination General/Neuro: alert & oriented x3 Neck: no JVD present Lungs: CTA Heart: RRR Abdomen: soft Extremities: other: (No edema) - Telemetry Telemetry Rhythm: SR - Labs Result Diagrams: 03/04/18 05:31 03/04/18 05:31 - Assessment/Plan 1. Afib with RVR with S/p MOODY and DCCV on 03/06/18 - Remains in SR since DCCV yesterday. On Digoxin 0.125mg qd, Flecainide 50mg BID, Coreg 3.125mg BID, and Xarelto, which changed to Eliquis 5mg BID (1 month coupon will be given to the pt at discharge). 2. CAD with hx of CABG in 2013 - stable with ASA, statin, and ARB. Will start BBlocker from today. 3. Sepsis - On ABX IV, managed by PCP 4. Chronic diastolic HF - Echo on 03/04/18 showed EF 50-55% and Restrictive diastolic dysfunction. Stable with Lasix and ARB; will start low dose BBlocker from today. 5. HTN - Increase Losartan from 25mg to 50mg qd from today. 6. Hyperlipidemia - on Statin MAR reviewed * Echo on 03/04/18 showed EF 50-55%, Restrictive diastolic dysfunction, mild ERV, mod-severe dilated LA, mild-mod MR, mild AR, mild [place], and severe TR. * From Cardiac standpoint, the pt can be d/kaylin home when her VS is stable. The pt will f/u with Dr Zepeda' office within 10 days. Review of Systems - Review of Systems Constitutional: reports: no symptoms reported EENTM: reports: no symptoms reported Respiratory: reports: no symptoms reported Cardiac (ROS): reports: no symptoms reported ABD/GI: reports: no symptoms reported : reports: no symptoms reported
[2018-03-07 10:06] VITALS: BP 175/72
[2018-03-07] MEDS: Digoxin 0.125 MG TAB PO SCH (10:43)
[2018-03-07] MEDS: Carvedilol 3.125 MG TAB PO SCH (10:43)
[2018-03-07] MEDS: Flecainide 50 MG TAB PO SCH (10:43)
--- NOTE | 2018-03-07 12:19 | DIS ---
DATE OF ADMISSION: 03/03/2018 DATE OF DISCHARGE: 03/07/2018 DISCHARGE DIAGNOSES: 1. Sepsis secondary to pneumonia, resolved. 2. Atrial fibrillation with rapid ventricular response, status post cardioversion and current sinus mechanism. 3. Community-acquired bacterial pneumonia, suspected streptococcal species, improved. 4. Chronic narcotic use. 5. Hypertension. CONSULTATION: Dr. Zepeda with Cardiology Service. PERTINENT LABORATORY AND X-RAY FINDINGS: Lactic acid level 1.6. TSH 1.41. Magnesium 1.9. CBC showed a white blood cell count ranging between 8.6 to 15.3, hemoglobin ranged between 11.4 to 12.5. Blood cultures x2 dated 03/03/2018, showed no growth at 48 hours. Influenza A and B antigen negative on 03/03/2018. Portable chest x-ray dated 03/03/2018, showed no acute cardiopulmonary process. Questionable parenchymal changes in the right lung base. 2D transthoracic echocardiogram dated , showed ejection fraction of 50% to 55%. Diastolic dysfunction noted. Aneuyfgt-ae-ornihq left atrial enlargement. Moderate right atrial enlargement. Severe tricuspid valve regurgitation. HOSPITAL COURSE: The patient was initially admitted to the Telemetry Unit after presenting with fever and shortness of breath. The patient underwent extensive evaluation including chest imaging showing questionable infiltrate in the right lung base. The patient was noted with a temperature of a 103.9 degrees Fahrenheit and placed on Rocephin and Zithromax as well as treated for sepsis criteria. The patient apparently developed atrial fibrillation with rapid ventricular response during EMS transport, receiving a Cardizem intravenous bolus. The patient continued on IV fluids and was evaluated by the Cardiology Service with recommendations for rate control strategy. The patient was treated with flecainide, digoxin, and Coreg with overall improvement in heart rate. The patient subsequently underwent cardioversion on 03/06/2018 with return to sinus mechanism. Telemetry monitoring postcardioversion showed sinus arrhythmia with some bradycardia with eventual discontinuation of digoxin. The patient overall remained clinically stable throughout the hospital course with stable vital signs. I have examined the patient at the time of discharge and discussed followup instructions. The patient verbalized understanding and in agreement. Ready for discharge on 03/07/2018. DISCHARGE MEDICATIONS: 1. Tylenol No. 4 of 300/60 mg 1 to 2 tablets p.o. q.8 hours p.r.n. 2. Proventil HFA 2 puffs inhaled t.i.d. p.r.n. 3. Enteric-coated aspirin 81 mg p.o. daily. 4. Vitamin D3 of 2000 units p.o. daily. 5. Flonase nasal spray 2 sprays inhaled daily. 6. Lasix 40 mg p.o. daily. 7. Gabapentin 300 mg p.o. t.i.d. 8. Morphine sulfate extended release 15 mg p.o. t.i.d. p.r.n. 9. Multivitamin 1 tablet p.o. daily. 10. Pravachol 80 mg p.o. at bedtime. 11. Coenzyme Q10 one capsule p.o. daily. 12. Effexor 75 mg p.o. daily. 13. Eliquis 5 mg p.o. b.i.d. 14. Tessalon Perles 100 mg p.o. q.6 hours p.r.n. 15. Coreg 3.125 mg p.o. b.i.d. 16. Tambocor 50 mg p.o. b.i.d. 17. Levaquin 750 mg p.o. q.48 hours 5 days total. 18. Cozaar 50 mg p.o. daily. FOLLOWUP: The patient to follow up with her primary care provider, Daniele Hicks within 7 days of discharge. The patient to follow up with Dr. Letty Zepeda with [facility] within 4 weeks of discharge. CONDITION ON DISCHARGE: Stable. ACTIVITY: Ad juan. DIET: Regular. CODE STATUS: Full. DISPOSITION: Home on 03/07/2018. TIME SPENT: Total time preparing and coordinating discharge, 35 minutes. Job ID: [id number]
[2018-03-07] MEDS ORDERED: Prevnar 13-Val Conj/PF 0.5 ML SYRINGE IM ONE (14:00)
[2018-03-08] MEDS ORDERED: Losartan 25 MG TAB PO SCH (09:00)
[2018-03-08] MEDS ORDERED: Apixaban 5 MG TAB PO SCH (09:00)
== END 2018-03-07 13:15 | disposition home or self-care (01) | DRG 871 ==
LOC: ERS 12:04 → 2NO 15:50
PROVIDERS: ADMIT Family Medicine; ATTEND Family Medicine
PROC: 5A2204Z Restoration of Cardiac Rhythm, Single (ICD-10-PCS; principal; 2018-03-06)
DX: A40.3 Sepsis due to Streptococcus pneumoniae (principal); J13 Pneumonia due to Streptococcus pneumoniae; I50.32 Chronic diastolic (congestive) heart failure; I48.91 Unspecified atrial fibrillation; Z95.1 Presence of aortocoronary bypass graft; E78.5 Hyperlipidemia, unspecified; G47.33 Obstructive sleep apnea (adult) (pediatric); M19.90 Unspecified osteoarthritis, unspecified site; Z23 Encounter for immunization; I25.10 Atherosclerotic heart disease of native coronary artery without angina pectoris; I11.0 Hypertensive heart disease with heart failure; F11.90 Opioid use, unspecified, uncomplicated
CPT/HCPCS: 36415; 51701; 71045; 80048; 80053; 81003; 83605; 83735; 84443; 85007; 85025; 85027; 87040; 87804; 90471; 90670; 92960; 93005; 93010; 96365; 96366; 96368; A4353; G0009; J0456; J0696; J1160; J1650; J1956; J2704

== ENCOUNTER 2018-04-03 17:35 | Observation (INO) | payer MEDICARE, OTHER ==
[2018-04-03 18:56] LABS: #Basophils 0.1 thou/uL (0.0-0.2); #Eosinphils 0.3 thou/uL (0.0-0.7); #Lymphocytes 1.9 thou/uL (1.20-3.40); #Monocytes 0.8 thou/uL (0.11-0.59); #Neutrophils 3.8 thou/uL (1.40-6.50); %Eosinophils 3.8 % (0.0-10.0); %Lymphocytes 28.4 % (21.0-51.0); %Monocytes 11.3 % (0.0-10.0); %Neutrophils 55.6 % (42.0-75.0); Hemoglobin 13.8 g/dL (12.0-16.0); Mean Corpuscular Hemoglobin 28.7 pg (27.0-31.0); Mean Corpuscular Volume 87.1 fL (78.0-98.0); Mean Platelet Volume 8.2 fL (7.4-10.4); Platelet Count 289 thou/uL (130-400); White Blood Cell (WBC) Count 6.8 thou/uL (4.8-10.8)
[2018-04-03 19:19] LABS: ALT (SGPT) 13 U/L (8-55); AST (SGOT) 21 U/L (5-34); Albumin 3.8 g/dL (3.4-4.8); Alkaline Phosphatase 80 U/L (40-150); Anion Gap 14 mmol/L (10-20); BUN (Urea Nitrogen) 20 mg/dL (9.8-20.1); Bilirubin, Total 0.4 mg/dL (0.2-1.2); Calc. Creatinine Clearance 0 mL/min (70-130); Calcium 9.1 mg/dL (7.8-10.44); Carbon Dioxide 26 mmol/L (23-31); Chloride 106 mmol/L (98-107); Estimated GFR-MDRD 54; Globulin 2.7 g/dL (2.4-3.5); Glucose 97 mg/dL (83-110); Potassium 4.8 mmol/L (3.5-5.1); Protein, Total 6.5 g/dL (6.0-8.3); Sodium 141 mmol/L (136-145)
--- NOTE | 2018-04-03 19:42 | RAD ---
PORTABLE CHEST 04/03/18 PROVIDED CLINICAL HISTORY: Chest pain. FINDINGS: Comparison 03/03/18. The cardiac silhouette is within normal limits. Median sternotomy changes and atherosclerosis are dem onstrated. No focal consolidation, pleural fluid, or pneumothorax apparent. IMPRESSION: No evidence for an acute cardiopulmonary process. POS: [facility]
[2018-04-03] MEDS ORDERED: Acetaminophen 325 MG TAB PO PRN (23:03)
[2018-04-03] MEDS ORDERED: Calcium Carbonate 500 MG ChewTAB PO PRN (23:03)
[2018-04-03] MEDS ORDERED: Guaifenesin DM 100-10/5 ML UDCUP PO PRN (23:03)
[2018-04-03] MEDS ORDERED: Senokot S 8.6-50 MG TAB PO PRN (23:03)
[2018-04-03] MEDS ORDERED: Zolpidem Tartrate 5 MG TAB PO PRN (23:03)
[2018-04-03] MEDS ORDERED: Benzonatate 100 MG CAP PO PRN (23:09)
[2018-04-03] MEDS ORDERED: Fluticasone Propionate Nasal Spray 16 gm Bottle NASAL PRN (23:09)
[2018-04-03] MEDS ORDERED: ACETAMINOPHEN WITH CODEINE PO PRN (23:09)
[2018-04-03 23:11] LABS: Troponin I Less than 0.010 ng/mL (< 0.028)
[2018-04-03] MEDS ORDERED: Morphine ER 15 MG TAB PO PRN (23:43)
[2018-04-04 00:08] VITALS: BMI 29.5
[2018-04-04] MEDS: Sodium Chloride 0.9% 1,000 ML IV SCH ×2 (00:40→12:34)
[2018-04-04 01:40] LABS: Troponin I Less than 0.010 ng/mL (< 0.028)
[2018-04-04] MEDS: Gabapentin 300 MG CAP PO SCH ×2 (05:06→16:31)
[2018-04-04 05:13] LABS: #Eosinphils 0.3 thou/uL (0.0-0.7); #Monocytes 0.6 thou/uL (0.11-0.59); #Neutrophils 4.5 thou/uL (1.40-6.50); %Basophils 0.6 % (0.0-1.0); %Eosinophils 3.6 % (0.0-10.0); %Lymphocytes 27.2 % (21.0-51.0); %Neutrophils 60.6 % (42.0-75.0); Hemoglobin 13.4 g/dL (12.0-16.0); Mean Corpuscular HGB CONC 32.4 g/dL (32.0-36.0); Mean Corpuscular Hemoglobin 28.5 pg (27.0-31.0); Mean Platelet Volume 8.8 fL (7.4-10.4); Platelet Count 278 thou/uL (130-400); RBC Distribution Width 13.2 % (11.5-14.5); Red Blood Cell (RBC) Count 4.71 mill/uL (4.20-5.40); White Blood Cell (WBC) Count 7.5 thou/uL (4.8-10.8)
[2018-04-04 05:36] LABS: Anion Gap 15 mmol/L (10-20); BUN (Urea Nitrogen) 20 mg/dL (9.8-20.1); Calc. Creatinine Clearance 56 mL/min (70-130); Carbon Dioxide 25 mmol/L (23-31); Chloride 104 mmol/L (98-107); Estimated GFR-MDRD 52; Glucose 145 mg/dL (83-110); Potassium 3.9 mmol/L (3.5-5.1); Sodium 140 mmol/L (136-145)
--- NOTE | 2018-04-04 07:34 | HP ---
CHIEF COMPLAINT: Dizziness. HISTORY OF PRESENT ILLNESS: This is an 82-year-old female with past medical history of hypertension, hyperlipidemia, and sleep apnea, presenting with dizziness, shortness of breath, and cough. She stated that she was at home and she stood up and she felt faint. The patient stated that she was getting a little dizzy, lightheaded, therefore, that prompted her to come to the ED to be further evaluated. At this point, the patient stated that she is feeling much better, does not have any symptoms of dizziness and she does not have any complaints at this time. The patient stated that she was recently in the hospital where she was seen by Dr. Zepeda, who diagnosed her with atrial fibrillation and she was cardioverted to normal sinus rhythm. The patient also stated that during the time that she was here, she was also diagnosed with pneumonia, which she took antibiotics for. The patient states that she lives at home with and disabled son, and she is the one who takes care of the son and the ; therefore, the patient stated that if she is feeling much better, she can be able to go home today. At this time, the patient denies any fever, chills, nausea, vomiting, chest pain, palpitation, abdominal pain, constipation, diarrhea. However, the patient endorses shortness of breath and cough. REVIEW OF SYSTEMS: Positive for cough, shortness of breath, and some weakness. Otherwise, as documented in the HPI. All systems are reviewed and are negative. PAST MEDICAL HISTORY: Hypertension, hyperlipidemia, sleep apnea. FAMILY HISTORY: Reviewed and noncontributory. PAST SURGICAL HISTORY: 1. Coronary artery bypass graft, two vessels, date of surgery was 2013. 2. Bilateral knee replacement. 3. Right shoulder surgery. PSYCH HISTORY: No psych history. SOCIAL HISTORY: The patient denies alcohol use. The patient denies any drug use and the patient does not smoke. ALLERGIES: NO KNOWN DRUG ALLERGIES. CURRENT MEDICATIONS: The patient takes; 1. Gabapentin 300 t.i.d. 2. Mirtazapine 15 mg. 3. Lasix 40 mg daily. 4. Lorazepam 0.5 mg. 5. Nitroglycerin sublingual every 15 minutes p.r.n. for chest pain. 6. Coreg 12.5 mg b.i.d. 7. Aspirin 81 mg daily. 8. Multivitamins. 9. Vitamin D3. 10. Coenzyme Q. 11. Pravastatin 80 mg daily. 12. Venlafaxine. PHYSICAL EXAMINATION: VITAL SIGNS: The patient's blood pressure is 143/79, pulse is 102, respiratory rate of 18, temperature is 97.8, oxygen saturation of 98. GENERAL: The patient is alert and oriented x3, not in acute distress. At this time, the patient is lying comfortably in bed. HEENT: Normocephalic and atraumatic. Pupils are equally round and reactive to light. Extraocular movements are intact. No scleral icterus. No conjunctival pallor. Mucous membranes are moist. NECK: Trachea is midline. Full range of motion. Supple. No lymphadenopathy is appreciated. RESPIRATORY: Clear to auscultation bilaterally. No wheezing, no rales, no rhonchi appreciated. CARDIAC: Positive S1 and S2. Irregularly irregular. No murmurs, no gallops, no rubs appreciated. ABDOMEN: Soft, nontender, and nondistended. Positive bowel sounds in all quadrants. No palpable masses. No peritoneal signs. EXTREMITIES: The patient has 5/5 upper extremity strength. Full range of motion. Good pulses bilaterally. Lower extremity, no edema noted. The patient has 5/5 lower extremity strength. Good pulses bilaterally at the lower extremities. NEUROLOGIC: Cranial nerves 2 through 12 are grossly intact. No neurologic deficits noted. SKIN: Warm, dry, and intact. PSYCHIATRIC: The patient has normal affect. DIAGNOSTIC DATA: EKG; 12-lead shows atrial fibrillation with rapid ventricular response. X-rays show no acute cardiopulmonary process. ASSESSMENT AND PLAN: This is an 82-year-old female is being admitted for: 1. Lightheadedness and some shortness of breath, likely due to orthostatic hypotension. At this time, the patient does not have orthostatic hypotension. The patient's blood pressure has been stable in the 130 systolic. At this point, we will continue the patient on gentle hydration. I will monitor the patient overnight. 2. History of atrial fibrillation with rapid ventricular response. At this point, the patient's heart rate is under control. We will continue to monitor the patient closely at this time. 3. Cough. We will advice the patient to continue on DuoNeb treatments and p.o. Levaquin which was ordered for the patient to be completed at home. 4. Hypertension. We will monitor the patient's blood pressure closely and we will treat accordingly. 5. Sleep apnea noted. 6. Hyperlipidemia. Continue the patient on current medical management. 7. Deep venous thrombosis and gastrointestinal prophylaxis. Job ID: [id number]
[2018-04-04] MEDS ORDERED: Loratadine 10 MG TAB PO PRN (07:49)
[2018-04-04] MEDS ORDERED: Diabetic Tussin 200 MG/10 ML UDCUP PO PRN (07:49)
[2018-04-04] MEDS ORDERED: Loperamide HCl 2 MG CAP PO PRN (07:49)
[2018-04-04] MEDS ORDERED: hydrALAZINE 20 MG/ML VIAL SLOW IVP PRN (07:49)
[2018-04-04] MEDS ORDERED: Artificial Tears 18 DROP/0.9 ML EA EYE PRN (07:49)
[2018-04-04] MEDS ORDERED: Nitroglycerin 0.4 MG TAB (25 Tab Bottle) SL PRN (07:49)
[2018-04-04] MEDS ORDERED: Metoclopramide HCl 10 MG/2 ML VIAL IVP PRN (07:49)
[2018-04-04] MEDS ORDERED: Sodium Chloride 0.65% Nasal 44 ML BOT EA NARE PRN (07:49)
[2018-04-04] MEDS ORDERED: HYDROcodone/Acetaminophen 5/325 mg Tablet PO PRN (07:49)
[2018-04-04] MEDS ORDERED: Eucerin (Mineral Oil/Petrolatum,White) 30 gm Jar TOP PRN (07:49)
[2018-04-04] MEDS ORDERED: Cepastat Lozenges 1 LOZ PO PRN (07:49)
[2018-04-04] MEDS ORDERED: Albuterol Sulfate 2.5 mg/3 ml Neb NEB PRN (07:50)
[2018-04-04] MEDS ORDERED: Aspirin 81 mg Enteric Coated Tablet PO SCH (09:00)
[2018-04-04] MEDS ORDERED: Losartan 25 MG TAB PO SCH (09:00)
[2018-04-04] MEDS ORDERED: VIT E ACETATE PO SCH (09:00)
[2018-04-04] MEDS ORDERED: UBIDECARENONE PO SCH (09:00)
[2018-04-04] MEDS ORDERED: Multivitamin W/ Minerals 1 TAB PO SCH (09:00)
[2018-04-04] MEDS ORDERED: Famotidine/PF 20 mg/2ml Vial SLOW IVP SCH (09:00)
[2018-04-04] MEDS ORDERED: Flecainide 50 MG TAB PO SCH (09:00)
[2018-04-04] MEDS ORDERED: Venlafaxine HCl XR 75 MG CAP PO SCH (09:00)
[2018-04-04] MEDS ORDERED: Famotidine 20 MG TAB PO SCH (09:00)
[2018-04-04] MEDS ORDERED: Ubidecarenone 50 MG CAP PO SCH (09:00)
[2018-04-04] MEDS ORDERED: Apixaban 5 MG TAB PO SCH (09:00)
[2018-04-04] MEDS: Carvedilol 3.125 MG TAB PO SCH ×2 (09:19→18:01)
--- NOTE | 2018-04-04 10:26 | PDOC.PN ---
- Subjective Encounter Start Date: 04/04/18 Encounter Start Time: 07:10 Patient seen and examined. No new complaints. No overnight events - Objective Resuscitation Status - Order Detail: 04/03/18 23:03 Resuscitation Status Routine Resuscitation Status: FULL: Full Resuscitation MAR Reviewed: Yes Vital Signs & Weight: Vital Signs (12 hours) Temp Pulse Resp BP Pulse Ox 04/04/18 07:32 98.3 F 107 H 19 119/75 95 04/04/18 05:07 97.5 F L 111 H 20 120/76 95 04/03/18 23:22 98.3 F 112 H 16 132/95 H 97 Weight Weight 183 lb 3.2 oz I&O: 04/03/18 04/04/18 04/05/18 06:59 06:59 06:59 Intake Total 617 Balance 617 Result Diagrams: 04/04/18 04:38 04/04/18 04:38 Radiology Reviewed by me: Yes EKG Reviewed by me: Yes (afib) Phys Exam - Physical Examination Constitutional: NAD HEENT: PERRLA, moist MMs, sclera anicteric Neck: no JVD, supple Respiratory: no wheezing, no rales, no rhonchi Cardiovascular: irregular SM+ parasternal Gastrointestinal: soft, non-tender, no distention, positive bowel sounds Musculoskeletal: no edema, pulses present Neurological: non-focal, normal sensation, moves all 4 limbs Lymphatic: no nodes Psychiatric: normal affect, A&O x 3 Skin: no rash, normal turgor Dx/Plan (1) Dizziness Code(s): R42 - DIZZINESS AND GIDDINESS Status: Acute (2) Paroxysmal atrial fibrillation with RVR Code(s): I48.0 - PAROXYSMAL ATRIAL FIBRILLATION Status: Chronic (3) CAD (coronary artery disease) Code(s): I25.10 - ATHSCL HEART DISEASE OF [place] CORONARY ARTERY W/O ANG PCTRS Status: Chronic Qualifiers: (4) Chronic anemia Code(s): D64.9 - ANEMIA, UNSPECIFIED Status: Chronic (5) Chronic anticoagulation Code(s): Z79.01 - STATION CASHIER (CURRENT) USE OF ANTICOAGULANTS Status: Chronic (6) Chronic narcotic use Code(s): F11.90 - OPIOID USE, UNSPECIFIED, UNCOMPLICATED Status: Chronic Comment: (7) Chronic stage c diastolic heart failure Code(s): I50.32 - CHRONIC DIASTOLIC (CONGESTIVE) HEART FAILURE Status: Chronic (8) Dyslipidemia Code(s): E78.5 - HYPERLIPIDEMIA, UNSPECIFIED Status: Chronic (9) HTN (hypertension) Code(s): I10 - ESSENTIAL (PRIMARY) HYPERTENSION Status: Chronic Qualifiers: Comment: (10) Severe tricuspid regurgitation by prior echocardiogram Code(s): I07.1 - RHEUMATIC TRICUSPID INSUFFICIENCY Status: Chronic - Plan cont current plan of care * home medication reconciled * cardiology following * EP will decide if another cardioversion vs ablation is option or not * will need holter monitoring * possible discharge pending EP recommendation * medication reviewed as below * symptomatic treatment. Review of Systems - Review of Systems ENT: negative: Ear Pain, Ear Discharge, Nose Pain, Nose Discharge, Nose Congestion, Mouth Pain, Mouth Swelling, Throat Pain, Throat Swelling, Other Respiratory: negative: Cough, Dry, Shortness of Breath, Hemoptysis, SOB with Excertion, Pleuritic Pain, Sputum, Wheezing Cardiovascular: light headedness. negative: chest pain, palpitations, orthopnea , paroxysmal nocturnal dyspnea, edema, other Gastrointestinal: negative: Nausea, Vomiting, Abdominal Pain, Diarrhea, Constipation, Melena, Hematochezia, Other Genitourinary: negative: Dysuria, Frequency, Incontinence, Hematuria, Retention , Other Musculoskeletal: negative: Neck Pain, Shoulder Pain, Arm Pain, Back Pain, Hand Pain, Leg Pain, Foot Pain, Other Skin: negative: Rash, Lesions, Rocky, Bruising, Other - Medications/Allergies Allergies/Adverse Reactions: Allergies Allergy/AdvReac Type Severity Reaction Status Date / Time No Known Allergies Allergy Verified 04/04/18 00:10 Medications: Current Medications Acetaminophen (Tylenol) 650 mg PO Q4H PRN PRN Reason: Headache/Fever/Mild Pain (1-3) Hydrocodone Bitart/Acetaminophen ([place] 5/325) 1 tab PO Q4H PRN PRN Reason: Moderate Pain (4-6) Albuterol Sulfate (Ventolin) 2.5 mg NEB [id number] PRN PRN Reason: Wheezing Albuterol/Ipratropium (Duoneb) 3 ml NEB [id number] PRN PRN Reason: SOB &/or Wheezing Apixaban (Eliquis) 5 mg PO BID [facility] Last Admin: 04/04/18 09:21 Dose: 5 mg Artificial Tears (Tears Naturale) 2 drop EA EYE PRN PRN PRN Reason: Dry Eyes Aspirin (Ecotrin) 81 mg PO DAILY [facility] Last Admin: 04/04/18 09:21 Dose: 81 mg Benzonatate (Tessalon) 100 mg PO Q6H PRN PRN Reason: Cough Calcium Carbonate (Tums) 1,000 mg PO Q4H PRN PRN Reason: Heartburn or Indigestion Carvedilol (Coreg) 3.125 mg PO BID-[facility] Last Admin: 04/04/18 09:19 Dose: 3.125 mg Cholecalciferol (Vitamin D3) 2,000 units PO DAILY [facility] Last Admin: 04/04/18 09:20 Dose: 2,000 units Coenzyme Q10 (Coenzyme Q10) 100 mg PO DAILY [facility] Last Admin: 04/04/18 09:19 Dose: 100 mg Famotidine (Pepcid) 20 mg SLOW IVP Q12HR [facility] Last Admin: 04/04/18 09:31 Dose: Not Given Famotidine (Pepcid) 20 mg PO BID [facility] Last Admin: 04/04/18 09:20 Dose: 20 mg Flecainide Acetate (Tambocor) 50 mg PO Q12HR [facility] Last Admin: 04/04/18 09:20 Dose: 50 mg Fluticasone Propionate (Flonase Nasal [place]) 0 gm NASAL DAILY PRN PRN Reason: Congestion Gabapentin (Neurontin) 300 mg PO Q8HR [facility] Last Admin: 04/04/18 05:06 Dose: 300 mg Guaifenesin (Robitussin Sf) 200 mg PO Q4H PRN PRN Reason: Cough Guaifenesin/Dextromethorphan (Robitussin Dm) 15 ml PO Q4H PRN PRN Reason: Cough Hydralazine HCl (Apresoline) 10 mg SLOW IVP Q4H PRN PRN Reason: SBP > 180 and HR < 70 Sodium Chloride (Normal Saline 0.9%) 1,000 mls @ 80 mls/hr IV .[id number] [facility] Last Admin: 04/04/18 00:40 Dose: 1,000 mls Iron/Minerals/Multivitamins (Theragran M) 1 tab PO DAILY [facility] Last Admin: 04/04/18 09:20 Dose: 1 tab Loperamide HCl (Imodium) 2 mg PO PRN PRN PRN Reason: Diarrhea/Loose Stools Loratadine (Claritin) 10 mg PO DAILYPRN PRN PRN Reason: Sinus Symptoms Losartan Potassium (Cozaar) 50 mg PO DAILY [facility] Last Admin: 04/04/18 09:21 Dose: 50 mg Metoclopramide HCl (Reglan) 5 mg IVP Q4H PRN PRN Reason: Nausea Mineral Oil/White Petrolatum (Eucerin Cream) 0 gm TOP BIDPRN PRN PRN Reason: Dry Skin Morphine Sulfate (Ms Contin) 15 mg PO Q8H PRN PRN Reason: Pain 4-6 Last Admin: 04/04/18 00:38 Dose: 15 mg Nitroglycerin (Nitrostat) 0.4 mg SL Q5MIN PRN PRN Reason: Chest Pain (Acetaminophen With Codeine [Tylenol With Codeine #4] 1 Tab) 1 tab PO Q8H PRN PRN Reason: Pain Pravastatin Sodium (Pravachol) 80 mg PO [facility] Senna/Docusate Sodium (Senokot S) 2 tab PO BID PRN PRN Reason: Constipation Sodium Chloride (Flush - Normal Saline) 10 ml IVF Q12HR PRN PRN Reason: Saline Flush Sodium Chloride (Flush - Normal Saline) 10 ml IVF PRN PRN PRN Reason: Saline Flush Sodium Chloride ([place] Nasal [place] 0.65%) 0 ml EA NARE QIDPRN PRN PRN Reason: Nasal Congestion Throat Lozenges (Cepastat Lozenges) 1 david PO Q2H PRN PRN Reason: Sore Throat Venlafaxine HCl (Effexor Xr) 75 mg PO DAILY [facility] Last Admin: 04/04/18 09:21 Dose: 75 mg Zolpidem Tartrate (Ambien) 5 mg PO HSPRN PRN PRN Reason: Insomnia
[2018-04-04] MEDS ORDERED: PROPOFOL 200 MG/20 ML VIAL ONE (11:07)
[2018-04-04] MEDS ORDERED: Propofol 500 MG/50 ML VIAL ONE (13:47)
--- NOTE | 2018-04-04 13:47 | DIS ---
DATE OF ADMISSION: 04/03/2018 DATE OF DISCHARGE: 04/04/2018 PRIMARY CARE PHYSICIAN: [facility] call admission. DISCHARGE DISPOSITION: Home. PRIMARY DISCHARGE DIAGNOSES: 1. Paroxysmal atrial fibrillation with rapid ventricular response. 2. Status post cardioversion. 3. Dizziness. SECONDARY DISCHARGE DIAGNOSES: Coronary artery disease, chronic normocytic anemia, chronic anticoagulation, chronic narcotic use, chronic stage C diastolic heart failure, dyslipidemia, hypertension, and severe tricuspid regurgitation. PRIMARY PROCEDURE/OPERATION: MOODY and cardioversion. RADIOLOGICAL INVESTIGATION: Chest x-ray normal. SIGNIFICANT LABORATORY DATA: WBC 7.5, hemoglobin 13.4, and platelet 278. Sodium 140, potassium 3.9, BUN 20, creatinine 1.02, calcium 9.0. LFT normal. Cardiac enzyme negative. DISCHARGE MEDICATIONS: 1. Tylenol No. 3 one or two tablets q.8 hourly p.r.n. 2. Ventolin 2 puffs q.8 hourly p.r.n. 3. Aspirin 81 mg daily. 4. Vitamin D3 2000 units p.o. daily. 5. Flonase nasal spray daily. 6. Lasix 40 mg daily. 7. Gabapentin 300 mg p.o. q.8 hourly. 8. Morphine sulfate 15 mg q.8 hourly p.r.n. 9. Multivitamin one tablet daily. 10. Pravastatin 80 mg p.o. nightly. 11. Coenzyme Q10 100 mg daily. 12. Venlafaxine ER 75 mg daily. 13. Flecainide 50 mg b.i.d. 14. Eliquis 5 mg b.i.d. 15. Tessalon 100 mg q.6 hourly p.r.n. 16. Coreg 3.125 mg b.i.d. 17. Losartan 50 mg p.o. daily. CONTRAINDICATION: None. CODE STATUS: Full code. INPATIENT QUILL STRIPPER: Dr. Zepeda was following while in hospital. Dr. Dave Peng was consulted while in hospital. TEST RESULTS PENDING ON DISCHARGE: None. ALLERGIES: NO KNOWN DRUG ALLERGIES. DISCHARGE PLAN: Posthospital, the patient is instructed to follow up with Dr. Zepeda as well as Dr. Peng as instructed. HOSPITAL COURSE: An 82-year-old female with above-mentioned medical problem, who was admitted by Dr. Ruffin. Please see his H and P for further details. The patient was presented to emergency room with dizziness, lightheadedness. The patient was found with paroxysmal atrial fibrillation with rapid ventricular response. The patient was admitted to telemetry floor. Her all routine blood test including CBC, BMP, and cardiac enzyme unremarkable. Her heart rate was variable and Cardiology was consulted and Cardiology recommended electrophysiology consultation. Dr. Peng decided to do transesophageal echocardiography and cardioversion. Later on today, after that procedure, if the patient is stable and if consultants are okay, then the patient can be discharged home with her previous medication. I have seen and examined this patient bedside today. Please see my progress note from today for further detail. Job ID: [id number]
[2018-04-04 16:15] VITALS: BP 140/63; TEMP 96.1
[2018-04-04] MEDS ORDERED: Pravastatin Sodium 40 MG TAB PO SCH (21:00)
--- NOTE | 2018-04-05 17:59 | OP ---
INDICATION: 82-year-old female who recently developed atrial fibrillation with flutter. She has had rapid ventric ular response with the atrial fibrillation. She became lightheaded, dizzy and increasing shortness of breath and was admitted to the hospital. She was seen also earlier by the director of maternity services who cano ggested MOODY cardioversion if possible. She is on Eliquis sometimes since mid February. She was taken to the Recovery area where she was given short acting propofol and transesophageal probe was easily a dvanced down the distal esophagus. There was no evidence of left atrial appendage thrombus. No eviden ce of atrial septal defects and she underwent electrocardioversion using one attempt at 100 joules ba ck to a normal sinus rhythm. She was given short acting propofol for the procedure. IMPRESSION: Atrial fibrillation with flutter which was successfully converted back to sinus rhythm with one attem pt at 100 joules.
--- NOTE | 2018-04-05 22:12 | EKG ---
Test Reason : Blood Pressure : / mmHG Vent. Rate : 102 BPM Atrial Rate : 102 BPM P-R Int : 000 ms QRS Dur : 094 ms QT Int : 328 ms P-R-T Axes : 249 003 096 degrees QTc Int : 427 ms Atrial fibrillation Abnormal ECG Confirmed by YANA BROWN DO ([id number]), state editor GLEN LEVIN ([id number]) on 04/05/2018 10:11:55 PM Referred By: Confirmed By:YANA BROWN DO
--- NOTE | 2018-04-07 08:04 | CON ---
DATE OF CONSULTATION: 04/04/2018 ADDENDUM: Cardiology Consult Note INDICATION FOR CONSULTATION: This is an elderly female, who was seen back in February, was found to have atrial fibrillation with rapid ventricular response. She was placed on medical management and was started on Eliquis. She was seen back today. She was again admitted yesterday after she came in complaining of lightheaded, dizziness, and shortness of breath. She was found to have atrial fibrillation with a rapid ventricular response. She was advised to undergo further evaluation and treatment. She also has a history of coronary artery disease and chronic anemia. She has also a history of diastolic dysfunction and significant mitral and tricuspid valve regurgitation. We requested the geothermal heat pump machinist to also evaluate the patient due to atrial fibrillation and flutter. Suggestion was that we proceed with an electrical cardioversion of her atrial flutter, and hopefully with her atrial fibrillation, and if not, we will be able to control the atrial fibrillation perhaps if we are able to maintain sinus rhythm or maintain the rate at least with the atrial fibrillation. She denied any significant chest pain, mainly the shortness of breath and lightheadedness. She had been having some cough recently and weakness, which is most likely due to deconditioning and overall age. PAST MEDICAL HISTORY: Significant for atrial fibrillation, hypertension, dyslipidemia, sleep apnea, and tobacco abuse. She has had coronary artery bypass graft in the past, back in 2013. She has had right shoulder surgery and bilateral knee replacement. SOCIAL HISTORY: Please refer to the notes dictated by the nurse practitioner. FAMILY HISTORY: Please refer to the notes dictated by the nurse practitioner. ALLERGIES: PLEASE REFER TO THE NOTES DICTATED BY THE NURSE PRACTITIONER. MEDICATIONS: Please refer to the notes dictated by the nurse practitioner. REVIEW OF SYSTEMS: Please refer to the notes dictated by the nurse practitioner. PHYSICAL EXAMINATION: GENERAL: This is an elderly female, who is in no acute distress. VITAL SIGNS: Her vital signs are stable. Blood pressure slightly elevated 143/79, heart rate in the 90s to one teens with atrial fibrillation. HEENT: Shows the head to be normocephalic and atraumatic. Carotid pulses are present. There were no significant bruits. CHEST: Her chest actually appears to be clear. I did not hear any significant rales, rhonchi or wheezing. CARDIOVASCULAR: She has an irregularly irregular rhythm. She had no significant heaves or thrills. She does have systolic murmur at the apex as well as lower sternal border. ABDOMEN: Soft and nontender. Positive bowel sounds are present. EXTREMITIES: No clubbing or cyanosis. NEUROLOGICAL: The patient appears to be grossly intact. SKIN: Warm and dry. DIAGNOSTIC DATA: Her EKG showed atrial fibrillation with rapid ventricular response. LABORATORY DATA: Hemoglobin of 13.4 and WBC of 7.5. Her creatinine is 1.02 with a BUN of 20 and potassium is 3.9. Her blood sugar was 145. Cardiac enzyme negative for myocardial infarction. IMPRESSION: Elderly female with recent onset of atrial fibrillation, who has been treated with Eliquis, who persists to have shortness of breath and lightheadedness, most likely due to the associated tachycardia with atrial fibrillation. Her BNP was 539, slightly elevated, which indicates some degree of congestive heart failure, but she does have a history of diastolic dysfunction. Her last echocardiogram on March 04 showed an ejection fraction of 50% to 55% with diastolic dysfunction, rather significant, with a restrictive-type filling pattern. She had a moderately dilated left atrium as well as dilated right atrium with severe tricuspid valve regurgitation and also she has moderate mitral valve regurgitation. She will be advised to undergo electrical cardioversion of her atrial fibrillation back to sinus rhythm as well as the flutter, and hopefully, she will be maintained. We may need to readjust her medications and start her on some type of antiarrhythmic medications depending on the results of the cardioversion. She has been on flecainide and we will continue the flecainide at this time, as well as the Coreg and the Eliquis. Job ID: [id number]
--- NOTE | 2018-04-07 08:26 | CON ---
DATE OF CONSULTATION: PRIMARY CHARGE OPERATOR: Letty Zepeda MD PRIMARY TRAFFIC OFFICER: Dave Peng MD REFERRING PHYSICIAN: Dr. Ruffin. REASON FOR CARDIOLOGY CONSULT: Dizziness and weakness. HISTORY OF PRESENT ILLNESS: Ms. Walls is an 82-year-old female with a significant history of atrial fibrillation, status post MOODY and cardioversion on March 06, 2018, hypertension, hyperlipidemia, sleep apnea. After the patient was discharged from hospital in February 2018, she was rather terribly doing well, however, from day before yesterday patient started feeling of dizziness which she described as almost blackout, at least three times the day before yesterday and she felt like four or five or six times yesterday, which is much longer than previous day. Due to those reasons, patient presents to emergency department for further evaluation and treatment. She describes her dizziness, blackout like dizziness, often happens when she gets up; however, when she is in the bed or no movement, she does not have those symptoms. She denies shortness of breath, chest pain, discomfort or tightness in her chest, numbness to the left upper extremities, and also she denied any palpitation, fluttering in her chest. However, on the telemetry record, she has been Afib and A-flutter, heart rates have been in the 100s to 120s. The patient's last stress test was done in December 2017, has no ischemia with EF 61%. The patient had echocardiogram done February 2018 with EF 50% to 55%, restrictive diastolic dysfunction, mildly enlarged right ventricle cavity, moderate to severe dilated left atrium, moderate enlarged right atrium, mild to moderate mitral valve regurgitation, mild mitral annular calcification, mild aortic valve regurgitation, severe tricuspid regurgitation, and mild pulmonary valve regurgitation. The patient underwent MOODY and cardioversion on March 06, 2018. She was discharged, next day she was in atrial fibrillation. She has a followup with Dr. Zepeda' office since she was discharging on March 07, 2018. She reports she lost 40 pounds in the last 3 months. She does not have a good appetite. She is not eating well. Yesterday, she just had one small size the whole day. PAST MEDICAL HISTORY: 1. Atrial fibrillation. 2. Coronary artery disease with a history of CABG in 2013. 3. Chronic diastolic dysfunction. 4. Hypertension. 5. Hyperlipidemia. 6. Sleep apnea. SURGICAL HISTORY: Coronary artery bypass graft x2 in 2014, bilateral knee replacement, and right shoulder surgery. FAMILY HISTORY: Reviewed and noncontributory. SOCIAL HISTORY: She is retired. She live with her and one of her son last year. She is under stress because she is taking care of her and . The patient denied any ETOH, tobacco, or illicit drug abuse. ALLERGIES: SHE HAS NO KNOWN DRUG ALLERGIES. HOME MEDICATION: 1. Co-Q10 one capsule once a day. 2. Aspirin 81 mg once a day. 3. Vitamin D3 2000 units every day. 4. Gabapentin 300 mg every 6 hours. 5. Morphine sulfate 15 mg p.o. every 8 hours as needed. 6. Furosemide 40 mg once a day. 7. Flonase 2 spray as needed. 8. Multivitamin one tablet once a day. 9. Pravastatin 80 mg once a day. 10. Acetaminophen with Codeine #4, 1-2 tablets every 8 hours as needed. 11. Albuterol 2 puffs three times a day as needed. 12. Eliquis 5 mg twice a day. 13. Tessalon 100 mg every 6 hours as needed. 14. Carvedilol 3.125 mg twice a day. 15. Flecainide 50 mg twice a day. 16. Cozaar 50 mg once a day. 17. Venlafaxine 75 mg once a day. REVIEW OF SYSTEM: 12-point review of systems negative unless otherwise mentioned. The patient mentioned that the patient is under depression due to loss of her son and she has not had a good appetite. She lost 40 pounds over three months. PHYSICAL EXAMINATION: VITAL SIGNS: Blood pressure 119/75, pulse is 107, atrial fibrillation, atrial flutter, temperature 98.3, respiratory rate 19, and O2 saturation 95% on room air. GENERAL: The patient alert and oriented x4, not in acute distress. HEAD: Normocephalic, atraumatic. EYES: Extraocular muscle movement intact. ENT AND MOUTH: Oral mucosa moist without lesions. She wears a hearing aid to the right ear. NECK: No JVD. Normal range of motion RESPIRATORY: Clear to auscultation bilaterally. Diminished at the bases, but no wheeze, rales, or rhonchi noted. CARDIOVASCULAR: Irregularly irregular. No S3, S4. No significant murmur, heaves, or thrills noted. 2+ pulses in the bilateral upper and lower extremities, no edema. ABDOMEN: Soft, nontender. No mass to palpitate. Bowel sounds are present. SKIN: Warm and dry. No rash, lesion, or hematoma noted. MUSCULOSKELETAL: The patient able to move all extremities. The patient denied claudication. PSYCHIATRIC: The patient's mood is very appropriate. NEUROLOGIC: The patient alert, oriented x4, nonfocal. DIAGNOSTIC DATA: WBC 7.5, hemoglobin 13.4, hematocrit 41.4, platelets 278. Sodium 140, potassium 3.9, BUN 20, creatinine is 1.02, glucose 145, calcium 9.0, AST 21, ALT 13. Troponin is negative. Chest x-ray shows no evidence of acute cardiopulmonary process and the patient's 12-lead EKG at the ER showing atrial flutter. ASSESSMENT AND PLAN: 1. Dizziness. The patient describes her dizziness like almost blacked out. She denies any like symptom. The patient's symptoms from possible orthostatic hypotension or possible any arrhythmia from the heart. We would like to check orthostatic hypotension and if everything is okay, possible patient is going to be discharged with event monitor for couple of months. 2. Atrial fibrillation and atrial flutter. The patient's telemetry record shows continued atrial fibrillation and atrial flutter. EP consult was ordered for history of atrial flutter, also patient plan to have a MOODY and cardioversion this afternoon for atrial fibrillation. The patient is n.p.o. She has been on Eliquis since March 06, 2018. 3. Coronary artery disease with history of CABG x2 in 2013. The patient's condition is stable at this moment. She is on aspirin, beta jimmy, and pravastatin. We would like to continue to monitor on the telemetry. 4. Chronic diastolic heart failure. The patient's echocardiogram in February 2018 show a restrictive diastolic dysfunction. The patient's respiratory status is stable at the room air, no abdomen distended or edema in the lower extremities. She will be on losartan/ARB and she was on Lasix. She is also on a betablocker also. At this moment, she is not on Lasix due to dizziness secondary to orthostatic hypotension. The patient's vital signs are stable at this moment. Once the patient's condition stable, we would like to resume the patient's Lasix. 5. Hypertension. Patient's blood pressure is stable at this moment. 6. Hyperlipidemia. Patient on the statin. 7. Sleep apnea. We recommend the patient have another sleep study as outpatient if she has not had in more than a year. Thank you for allowing the Cardiology Service to participate in the care of this patient. We will follow along the patient's care team and make further recommendations as appropriate. Job ID: [id number]
== END 2018-04-04 19:50 | disposition home or self-care (01) ==
LOC: ERS 17:35 → 2SW 22:53
PROVIDERS: ADMIT Emergency Medicine; ATTEND Emergency Medicine
PROC: 5A2204Z Restoration of Cardiac Rhythm, Single (ICD-10-PCS; principal; 2018-04-03)
DX: I48.0 Paroxysmal atrial fibrillation (principal); I48.92 Unspecified atrial flutter; E78.5 Hyperlipidemia, unspecified; G47.30 Sleep apnea, unspecified; I25.10 Atherosclerotic heart disease of native coronary artery without angina pectoris; D64.9 Anemia, unspecified; I11.0 Hypertensive heart disease with heart failure; I50.32 Chronic diastolic (congestive) heart failure; I07.1 Rheumatic tricuspid insufficiency; Z79.01 Long term (current) use of anticoagulants; Z79.82 Long term (current) use of aspirin; Z79.899 Other long term (current) drug therapy; Z95.1 Presence of aortocoronary bypass graft
CPT/HCPCS: 71045; 80048; 80053; 84484 ×3; 85025 ×2; 92960; 93005; 93312; 96374; 97139 ×5; 99285; G0378 ×2; 36415; J2704; J2765; S0028

== ENCOUNTER 2018-05-22 09:18 | Observation (INO) | payer MEDICARE, OTHER ==
[2018-05-21 14:20] VITALS: BMI 28.2
[2018-05-22 10:08] LABS: #Eosinphils 0.1 thou/uL (0.0-0.7); #Lymphocytes 1.6 thou/uL (1.20-3.40); #Monocytes 0.4 thou/uL (0.11-0.59); #Neutrophils 4.4 thou/uL (1.40-6.50); %Basophils 0.7 % (0.0-1.0); %Eosinophils 1.5 % (0.0-10.0); %Lymphocytes 24.2 % (21.0-51.0); %Monocytes 6.5 % (0.0-10.0); Hemoglobin 13.5 g/dL (12.0-16.0); Mean Corpuscular HGB CONC 31.6 g/dL (32.0-36.0); Mean Corpuscular Hemoglobin 27.9 pg (27.0-31.0); Mean Corpuscular Volume 88.2 fL (78.0-98.0); Mean Platelet Volume 8.1 fL (7.4-10.4); Platelet Count 278 thou/uL (130-400); RBC Distribution Width 12.8 % (11.5-14.5); Red Blood Cell (RBC) Count 4.83 mill/uL (4.20-5.40); White Blood Cell (WBC) Count 6.5 thou/uL (4.8-10.8)
[2018-05-22 10:12] LABS: INR-International Normal Ratio 1.1; PTT 28.8 SEC (22.9-36.1); Prothrombin Time 14.4 SEC (12.0-14.7)
[2018-05-22 10:31] LABS: Anion Gap 12 mmol/L (10-20); BUN (Urea Nitrogen) 16 mg/dL (9.8-20.1); Calc. Creatinine Clearance 49 mL/min (70-130); Calcium 9.4 mg/dL (7.8-10.44); Carbon Dioxide 23 mmol/L (23-31); Chloride 107 mmol/L (98-107); Estimated GFR-MDRD 48; Glucose 99 mg/dL (83-110); Potassium 4.2 mmol/L (3.5-5.1); Sodium 138 mmol/L (136-145)
[2018-05-22] MEDS ORDERED: Heparin 10,000 UNITS/1 ML VIAL ONE ×2 (12:33→13:55)
[2018-05-22] MEDS ORDERED: Rocuronium Bromide 50 MG/5 ML VIAL ONE (13:07)
[2018-05-22] MEDS ORDERED: Fentanyl 100 MCG/2 ML VIAL ONE (13:07)
[2018-05-22] MEDS ORDERED: Phenylephrine HCL 10 MG/ML VIAL ONE (13:08)
[2018-05-22] MEDS ORDERED: Rocuronium Bromide 10 MG/ML (10ML VIAL) ONE (14:50)
[2018-05-22] MEDS ORDERED: PHENYLEPHRINE-NS 100 MCG/ML 10 ML SYRINGE ONE (14:50)
[2018-05-22] MEDS ORDERED: PROPOFOL 200 MG/20 ML VIAL ONE (14:50)
[2018-05-22] MEDS ORDERED: Lidocaine 1% PF 5 ML VIAL ONE (14:50)
[2018-05-22] MEDS ORDERED: Heparin 25,000 units/D5W 500 ML ONE (15:54)
[2018-05-22] MEDS ORDERED: Isoproterenol 0.2 MG/1 ML AMP ONE (15:54)
[2018-05-22] MEDS ORDERED: Protamine Sulfate 50 MG/5 ML VIAL ONE ×2 (17:02→17:24)
[2018-05-22] MEDS ORDERED: TYLENOL #4 PATIENT'S HOME MEDICATION PO PRN (17:33)
[2018-05-22] MEDS ORDERED: PROVENTIL INHALER 6.7 G (200 INHALATIONS) INH PRN (17:34)
[2018-05-22] MEDS ORDERED: Benzonatate 100 MG CAP PO PRN (17:34)
[2018-05-22] MEDS ORDERED: Fluticasone Propionate Nasal Spray 16 gm Bottle NASAL PRN (17:35)
[2018-05-22] MEDS: Morphine ER 15 MG TAB PO PRN (22:04)
[2018-05-22] MEDS: Aspirin 81 mg Enteric Coated Tablet PO SCH (22:05)
[2018-05-22] MEDS: Mirtazapine 15 MG TAB PO SCH (22:05)
[2018-05-22] MEDS: Apixaban 5 MG TAB PO SCH (22:05)
[2018-05-22] MEDS: Gabapentin 300 MG CAP PO SCH (22:05)
[2018-05-22] MEDS: Pravastatin Sodium 40 MG TAB PO SCH (22:11)
--- NOTE | 2018-05-22 23:27 | OP ---
Delete this note MTDD
[2018-05-22] MEDS ORDERED: Melatonin 3 MG TAB PO PRN (23:44)
--- NOTE | 2018-05-22 23:47 | OP ---
DATE OF PROCEDURE: 05/22/2018 PROCEDURE PERFORMED: Electrophysiology study and radiofrequency ablation. REASON FOR PROCEDURE: Ms. Walls is an 82-year-old female with prior history of atrial fibrillation, newly onset in February 2018, but failed cardioversion and flecainide. LVEF is normal. She has prior history of stents placement here for EP study and ablation. She has uninterrupted anticoagulation with Eliquis. DESCRIPTION OF PROCEDURE: The patient received general anesthesia by Anesthesia specialist. After adequate level of sedation achieved, the left and right femoral veins were accessed under ultrasound guidance x2. From the left side, a 9- [place] short sheath was used to advance the intracardiac echocardiogram probe into the right atrium, which was used to monitor the transeptal procedure as well as development of any effusion. Also from the right femoral vein, a Preface sheath was advanced, which was used to advance a decapolar CS probe. From the right side, a ThermoCool SFST catheter was advanced initially through an 8-Scottish short sheath , which was used to obtain the right atrial map, His bundle was delineated. Following that, a transseptal puncture was performed from the right-sided sheaths, an SL1 and Preface sheath were used for this purpose. After transseptal puncture, IV heparin bolus and drip were administered throughout the case to ascertain adequate anticoagulation with ACT over 350 was targeted. Also esophageal probe was in place to monitor temperatures and avoid excess esophageal heating. Through the transseptal sheath, a 20-pole Lasso SFST and ThermoCool SFST catheter was advanced to the left atrium. 3D map of left atrium was obtained and pulmonary venous isolation procedure as well as posterior wall ablation was performed by placing a roof and basal left atrial ablation line.. This did not eliminate the atrial fibrillation completely. Ablation in the inferior basal left atrium as well as the intra-atrial septum were performed. This still did not completely eliminate the atrial fibrillation at the end of the case with atypical atrial flutter was seen. Eventually, it was shock terminated. A total of 41 ablation lesions were delivered with ablation time of 27 minutes, 40 louise in average was used. Baseline cycle length after cardioversion was 1081 milliseconds, CT 201 milliseconds, QRS 99 milliseconds, QT 481 milliseconds, HV 52 milliseconds, Wenckebach cycle length was 380 milliseconds, AV node ERP was 600/200 milliseconds. Dual AV ana physiology was seen. No arrhythmia induced with these methods. Following that, Isuprel drip was administered and any reconnections were re- ablated. The patient tolerated the procedure well. No complications were noted. Intracardiac echo and cardiac silhouette did not reveal significant effusion. The sheaths were removed in the [employer] and the following numerical findings were also noted. Following that, catheter was removed. The anticoagulation was reversed with protamine. CONCLUSIONS: 1. Successful pulmonary venous isolation, posterior wall ablation, basal inferior left atrial ablation, and septal ablation performed. 2. Normal sinus ana and AV ana function. 3. PLAN: Routine postop care. Continue anticoagulation. Monitor for recurrent arrhythmias. Job ID: [id number] [facility]
[2018-05-23] MEDS ORDERED: Diltiazem HCl 125 MG, Admixture Fee 1 EACH in Sodium Chloride 0.9% 100 ML IVPB SCH (02:00)
[2018-05-23 05:36] LABS: #Eosinphils 0.2 thou/uL (0.0-0.7); #Lymphocytes 1.5 thou/uL (1.20-3.40); #Monocytes 0.7 thou/uL (0.11-0.59); #Neutrophils 6.5 thou/uL (1.40-6.50); %Basophils 0.3 % (0.0-1.0); %Eosinophils 2.3 % (0.0-10.0); %Lymphocytes 16.9 % (21.0-51.0); %Monocytes 7.6 % (0.0-10.0); %Neutrophils 72.9 % (42.0-75.0); Hemoglobin 12.7 g/dL (12.0-16.0); Mean Corpuscular HGB CONC 32.5 g/dL (32.0-36.0); Mean Corpuscular Hemoglobin 29.1 pg (27.0-31.0); Mean Corpuscular Volume 89.5 fL (78.0-98.0); Mean Platelet Volume 8.2 fL (7.4-10.4); Platelet Count 226 thou/uL (130-400); RBC Distribution Width 12.9 % (11.5-14.5); Red Blood Cell (RBC) Count 4.37 mill/uL (4.20-5.40); White Blood Cell (WBC) Count 8.9 thou/uL (4.8-10.8)
[2018-05-23] MEDS: Morphine ER 15 MG TAB PO PRN ×2 (05:51→19:37)
[2018-05-23] MEDS: Gabapentin 300 MG CAP PO SCH ×3 (06:53→21:13)
[2018-05-23] MEDS: Multivitamin W/ Minerals 1 TAB PO SCH (10:04)
[2018-05-23] MEDS: Apixaban 5 MG TAB PO SCH ×2 (10:05→21:13)
[2018-05-23] MEDS: Venlafaxine HCl XR 75 MG CAP PO SCH (10:06)
[2018-05-23] MEDS: Carvedilol 3.125 MG TAB PO SCH ×2 (10:43→17:43)
[2018-05-23] MEDS: Ubidecarenone 50 MG CAP PO SCH (10:43)
--- NOTE | 2018-05-23 11:56 | PDOC.PN ---
- Subjective Encounter Start Date: 05/23/18 Encounter Start Time: 07:10 -: old records requested/rev Patient seen and examined. No new complaints. No overnight events - Objective MAR Reviewed: Yes Vital Signs & Weight: Vital Signs (12 hours) Temp Pulse Resp BP BP Pulse Ox 05/23/18 11:28 98.3 F 73 18 103/69 92 L 05/23/18 07:51 97.6 F 93 18 114/83 91 L 05/23/18 04:00 98.2 F 98 18 119/86 94 L 05/23/18 00:00 98.0 F 67 18 122/68 95 Weight Weight 175 lb I&O: 05/22/18 05/23/18 05/24/18 06:59 06:59 06:59 Intake Total 0 260 Output Total 475 Balance -475 260 Result Diagrams: 05/23/18 05:18 05/22/18 09:50 EKG Reviewed by me: Yes (afib) Phys Exam - Physical Examination Constitutional: NAD HEENT: PERRLA, moist MMs, sclera anicteric Neck: no JVD, supple Respiratory: no wheezing, no rales, no rhonchi Cardiovascular: no significant murmur, irregular Gastrointestinal: soft, non-tender, no distention, positive bowel sounds Musculoskeletal: no edema, pulses present Neurological: non-focal, normal sensation, moves all 4 limbs Lymphatic: no nodes Psychiatric: normal affect, A&O x 3 Skin: no rash, normal turgor Dx/Plan (1) S/P ablation of atrial fibrillation Code(s): Z98.890 - OTHER SPECIFIED POSTPROCEDURAL STATES; Z86.79 - PERSONAL HISTORY OF OTHER DISEASES OF THE CIRCULATORY SYSTEM Status: Acute (2) CAD (coronary artery disease) Code(s): I25.10 - ATHSCL HEART DISEASE OF [place] CORONARY ARTERY W/O ANG PCTRS Status: Chronic Qualifiers: (3) Chronic anemia Code(s): D64.9 - ANEMIA, UNSPECIFIED Status: Chronic (4) Chronic anticoagulation Code(s): Z79.01 - SNF (CURRENT) USE OF ANTICOAGULANTS Status: Chronic (5) Chronic narcotic use Code(s): F11.90 - OPIOID USE, UNSPECIFIED, UNCOMPLICATED Status: Chronic Comment: (6) Chronic stage c diastolic heart failure Code(s): I50.32 - CHRONIC DIASTOLIC (CONGESTIVE) HEART FAILURE Status: Chronic (7) Dyslipidemia Code(s): E78.5 - HYPERLIPIDEMIA, UNSPECIFIED Status: Chronic (8) HTN (hypertension) Code(s): I10 - ESSENTIAL (PRIMARY) HYPERTENSION Status: Chronic Qualifiers: Comment: (9) PAF (paroxysmal atrial fibrillation) Code(s): I48.0 - PAROXYSMAL ATRIAL FIBRILLATION Status: Chronic (10) Severe tricuspid regurgitation by prior echocardiogram Code(s): I07.1 - RHEUMATIC TRICUSPID INSUFFICIENCY Status: Chronic - Plan cont current plan of care, plan discussed w/ family * Dc cardizem drip if RP Ok * medication reviewed as below * symptomatic treatment * discharge per primary team * medically stable with her home meds * discussed with family. Review of Systems - Review of Systems ENT: negative: Ear Pain, Ear Discharge, Nose Pain, Nose Discharge, Nose Congestion, Mouth Pain, Mouth Swelling, Throat Pain, Throat Swelling, Other Respiratory: negative: Cough, Dry, Shortness of Breath, Hemoptysis, SOB with Excertion, Pleuritic Pain, Sputum, Wheezing Cardiovascular: negative: chest pain, palpitations, orthopnea, paroxysmal nocturnal dyspnea, edema, light headedness, other Gastrointestinal: negative: Nausea, Vomiting, Abdominal Pain, Diarrhea, Constipation, Melena, Hematochezia, Other Genitourinary: negative: Dysuria, Frequency, Incontinence, Hematuria, Retention , Other Musculoskeletal: negative: Neck Pain, Shoulder Pain, Arm Pain, Back Pain, Hand Pain, Leg Pain, Foot Pain, Other Skin: negative: Rash, Lesions, Rocky, Bruising, Other - Medications/Allergies Allergies/Adverse Reactions: Allergies Allergy/AdvReac Type Severity Reaction Status Date / Time No Known Allergies Allergy Verified 05/21/18 13:57 Medications: Current Medications Albuterol Sulfate (Proventil Hfa) 2 puff INH TIDPRN PRN PRN Reason: . Apixaban (Eliquis) [address] [facility] Last Admin: 05/23/18 10:05 Dose: 5 mg Aspirin (Ecotrin) 81 mg PO [facility] Last Admin: 05/22/18 22:05 Dose: 81 mg Benzonatate (Tessalon) 100 mg PO Q6H PRN PRN Reason: Cough Carvedilol (Coreg) 3.125 mg PO BID-[facility] Last Admin: 05/23/18 10:43 Dose: Not Given Cholecalciferol (Vitamin D[facility]) [facility] Last Admin: 05/23/18 10:04 Dose: 2,000 units Coenzyme Q10 (Coenzyme Q10) [facility] Last Admin: 05/23/18 10:43 Dose: Not Given Fluticasone Propionate (Flonase Nasal [place]) 0 gm NASAL DAILYPRN PRN PRN Reason: . Gabapentin (Neurontin) [address] [facility] Last Admin: 05/23/18 06:53 Dose: 300 mg Diltiazem HCl 125 mg/Miscellaneous Medication 1 each/ Sodium Chloride 125 mls @ 10 mls/hr IVPB INF [facility]; Protocol Last Admin: 05/23/18 02:23 Dose: 125 mls Iron/Minerals/Multivitamins (Theragran M) [address] [facility] Last Admin: 05/23/18 10:04 Dose: 1 tab Melatonin (Melatonin) 3 mg PO HS PRN PRN Reason: Insomnia Last Admin: 05/23/18 00:54 Dose: 3 mg Mirtazapine (Remeron) 15 mg PO [facility] Last Admin: 05/22/18 22:05 Dose: 15 mg Morphine Sulfate (Ms Contin) 15 mg PO Q8H PRN PRN Reason: Pain Last Admin: 05/23/18 05:51 Dose: 15 mg Tylenol #4 Patient's (Home Medication) 1 each PO Q8H PRN PRN Reason: Pain Pravastatin Sodium (Pravachol) 80 mg PO [facility] Last Admin: 05/22/18 22:11 Dose: 80 mg Sodium Chloride (Flush - Normal Saline) 10 ml IVF PRN PRN PRN Reason: Saline Flush Venlafaxine HCl (Effexor Xr) [address] [facility] Last Admin: 05/23/18 10:06 Dose: 75 mg
[2018-05-23] MEDS ORDERED: Amiodarone HCl 150 MG in Dextrose 5% in Water 100 ML IVPB SCH (14:30)
--- NOTE | 2018-05-23 16:01 | DIS ---
DATE OF ADMISSION: 05/22/2018 DATE OF DISCHARGE: 05/24/2018 REASON FOR ADMISSION: Persistent atrial fibrillation, refractory to flecainide. PROCEDURE PERFORMED: Includes electrophysiology study and radiofrequency ablation, pulmonary venous isolation. HISTORY OF PRESENT ILLNESS: Ms. Walls is an 82-year-old woman with prior history of atrial fibrillation, new onset in 02/2018, but failed cardioversion as well as flecainide for antiarrhythmic therapy. Her LVEF is normal. She has a history of coronary artery disease with stents and was electively taken to the EP lab for study and ablation. She has uninterrupted anticoagulation with Eliquis. PROCEDURES PERFORMED AND CONCLUSIONS: 1. Successful pulmonary venous isolation and posterior wall ablation, basal inferior left atrial ablation and septal ablation performed. 2. Normal AV node and sinus node function. RECOMMENDATIONS: Continue anticoagulation and monitor for recurrent arrhythmias. SUBJECTIVE: Ms. Walls is doing well since her ablation yesterday. She feels well. She is unaware of any heart racing or palpitations. She denies chest pain, pressure, syncope, near syncope, stroke, or stroke-like symptoms. By telemetry , she converted into atypical atrial flutter with RVR at 1 o'clock in the morning and was placed on a diltiazem drip, but unfortunately had hypotension associated with this and the diltiazem was discontinued this morning. Since then, her blood pressure has stabilized. Her heart rate is slightly elevated at 100 to 115 beats per minute , but she is asymptomatic with this. Her groin sites are healing well and not had any bleeding issues overnight. She has been up out of bed, ambulating without issue , tolerating p.o. intake, and voiding normally. She is eager to discharge home. OBJECTIVE: VITAL SIGNS: Recent vital signs; temperature 98.3, pulse 93, blood pressure 114/83, respirations 18, oxygen is 92% on room air. GENERAL: Ms. Walls is alert and oriented. She is in no apparent distress. She is well groomed. She is very hard of hearing without her hearing aids. NECK: Supple without jugular venous distention. LUNGS: Clear to auscultation bilaterally. Respirations are even and nonlabored. HEART: Rate is rapid, but regular. There is no concern or suspicion for tamponade at this point with crisp heart tones and no significant murmur, rub, or gallop. There is no pulse deficit. ABDOMEN: Obese, soft, and nontender without palpable masses. NEUROLOGIC: Grossly intact cranial nerves 2 through 12. Gait is stable with assistive device. EXTREMITIES: Bilateral groin sites are stable without bleeding, hematoma, or oozing. Dressings are clean, dry, and intact. DIAGNOSTIC STUDIES: Telemetry and EKG reflected sinus rhythm until 1:00 a.m., at which point she converted into atypical atrial flutter with RVR. She remains in atrial flutter with variable RVR and her diltiazem drip was stopped around 11:00 a.m. DISCHARGE PLAN: We will give her a dose of 150 mg amiodarone IV and monitored overnight. She converted back to SR. She is being discharged with her with p.o. amiodarone , She already has an appointment for Saturday clinic. Be sure to continue Eliquis as currently prescribed without interruption post ablation and anticipating a cardioversion next week. She will contact [facility] with any concerns post ablation. She has been provided with new medications of furosemide and Lasix for any shortness of breath or fluid retention in addition to Protonix and Carafate for GI prophylaxis following the ablation. We will resume her home medications, but will discontinue flecainide in favor of amiodarone 200 mg p.o. b.i.d., which will be tapered to 200 mjg aftre 2 weeks. Can consider stopping 6-8 weeks post ablation as she walks through this acute recovery phase. Home meds: include resuming home doses of venlafaxine, CoQ10, pravastatin sodium, multivitamin, morphine sulfate, mirtazapine, gabapentin, cholecalciferol, carvedilol, aspirin, Eliquis, albuterol sulfate, benzonatate, Tylenol No. 4, fluticasone propionate. New prescriptions for Carafate 1 g p.o. q.i.d., Protonix 40 mg p.o. daily x1 month, furosemide 40 mg as needed for shortness of breath, potassium chloride 20 mEq p.o. as needed if taking Lasix, and amiodarone 200 mg p.o. b.i.d. x3 months. CONDITION AT DISCHARGE: Stable. Job ID: [id number] [facility]
[2018-05-23] MEDS: Mirtazapine 15 MG TAB PO SCH (21:13)
[2018-05-23] MEDS: Pravastatin Sodium 40 MG TAB PO SCH (21:13)
[2018-05-23] MEDS: Amiodarone 200 MG TAB PO SCH (21:13)
[2018-05-23] MEDS: Aspirin 81 mg Enteric Coated Tablet PO SCH (21:13)
[2018-05-24] MEDS: Gabapentin 300 MG CAP PO SCH (05:43)
[2018-05-24 07:42] VITALS: BP 154/72; TEMP 97.6
--- NOTE | 2018-05-24 09:32 | PDOC.PN ---
- Subjective Encounter Start Date: 05/24/18 Encounter Start Time: 07:15 Patient seen and examined. No new complaints. No overnight events - Objective MAR Reviewed: Yes Vital Signs & Weight: Vital Signs (12 hours) Temp Pulse Resp BP BP Pulse Ox 05/24/18 07:42 97.6 F 71 16 154/72 H 96 05/24/18 04:28 98 F 122 H 19 138/101 H 96 05/24/18 00:48 98.3 F 120 H 18 114/71 93 L Weight Weight 174 lb I&O: 05/23/18 05/24/18 05/25/18 06:59 06:59 06:59 Intake Total 0 720 Output Total 475 Balance -475 720 Result Diagrams: 05/23/18 05:18 05/22/18 09:50 EKG Reviewed by me: Yes (afib) Phys Exam - Physical Examination Constitutional: NAD HEENT: PERRLA, moist MMs, sclera anicteric Neck: no JVD, supple Respiratory: no wheezing, no rales, no rhonchi Cardiovascular: no significant murmur, irregular Gastrointestinal: soft, non-tender, no distention, positive bowel sounds Musculoskeletal: no edema, pulses present Neurological: non-focal, normal sensation Lymphatic: no nodes Psychiatric: normal affect, A&O x 3 Skin: no rash, normal turgor Dx/Plan (1) S/P ablation of atrial fibrillation Code(s): Z98.890 - OTHER SPECIFIED POSTPROCEDURAL STATES; Z86.79 - PERSONAL HISTORY OF OTHER DISEASES OF THE CIRCULATORY SYSTEM Status: Acute (2) CAD (coronary artery disease) Code(s): I25.10 - ATHSCL HEART DISEASE OF [place] CORONARY ARTERY W/O ANG PCTRS Status: Chronic Qualifiers: (3) Chronic anemia Code(s): D64.9 - ANEMIA, UNSPECIFIED Status: Chronic (4) Chronic anticoagulation Code(s): Z79.01 - [employer] (CURRENT) USE OF ANTICOAGULANTS Status: Chronic (5) Chronic narcotic use Code(s): F11.90 - OPIOID USE, UNSPECIFIED, UNCOMPLICATED Status: Chronic Comment: (6) Chronic stage c diastolic heart failure Code(s): I50.32 - CHRONIC DIASTOLIC (CONGESTIVE) HEART FAILURE Status: Chronic (7) Dyslipidemia Code(s): E78.5 - HYPERLIPIDEMIA, UNSPECIFIED Status: Chronic (8) HTN (hypertension) Code(s): I10 - ESSENTIAL (PRIMARY) HYPERTENSION Status: Chronic Qualifiers: Comment: (9) PAF (paroxysmal atrial fibrillation) Code(s): I48.0 - PAROXYSMAL ATRIAL FIBRILLATION Status: Chronic (10) Severe tricuspid regurgitation by prior echocardiogram Code(s): I07.1 - RHEUMATIC TRICUSPID INSUFFICIENCY Status: Chronic - Plan cont current plan of care * pt is cleared for discharge by EP * continue amiodaron as per EP * medication reviewed as below * symptomatic treatment * stable medically otherwise. Review of Systems - Review of Systems ENT: negative: Ear Pain, Ear Discharge, Nose Pain, Nose Discharge, Nose Congestion, Mouth Pain, Mouth Swelling, Throat Pain, Throat Swelling, Other Respiratory: negative: Cough, Dry, Shortness of Breath, Hemoptysis, SOB with Excertion, Pleuritic Pain, Sputum, Wheezing Cardiovascular: negative: chest pain, palpitations, orthopnea, paroxysmal nocturnal dyspnea, edema, light headedness, other Gastrointestinal: negative: Nausea, Vomiting, Abdominal Pain, Diarrhea, Constipation, Melena, Hematochezia, Other Genitourinary: negative: Dysuria, Frequency, Incontinence, Hematuria, Retention , Other Musculoskeletal: negative: Neck Pain, Shoulder Pain, Arm Pain, Back Pain, Hand Pain, Leg Pain, Foot Pain, Other - Medications/Allergies Allergies/Adverse Reactions: Allergies Allergy/AdvReac Type Severity Reaction Status Date / Time No Known Allergies Allergy Verified 05/21/18 13:57 Medications: Current Medications Albuterol Sulfate (Proventil Hfa) 2 puff INH TIDPRN PRN PRN Reason: . Amiodarone HCl (Cordarone) 200 mg PO BID [facility] Last Admin: 05/23/18 21:13 Dose: 200 mg Apixaban (Eliquis) 5 mg PO BID [facility] Last Admin: 05/23/18 21:13 Dose: 5 mg Aspirin (Ecotrin) 81 mg PO HS [facility] Last Admin: 05/23/18 21:13 Dose: 81 mg Benzonatate (Tessalon) 100 mg PO Q6H PRN PRN Reason: Cough Carvedilol (Coreg) 3.125 mg PO BID-WM [facility] Last Admin: 05/23/18 17:43 Dose: 3.125 mg Cholecalciferol (Vitamin D3) 2,000 units PO QAM [facility] Last Admin: 05/23/18 10:04 Dose: 2,000 units Coenzyme Q10 (Coenzyme Q10) 100 mg PO QAM [facility] Last Admin: 05/23/18 10:43 Dose: Not Given Fluticasone Propionate (Flonase Nasal [place]) 0 gm NASAL DAILYPRN PRN PRN Reason: . Gabapentin (Neurontin) 300 mg PO Q8HR [facility] Last Admin: 05/24/18 05:43 Dose: 300 mg Iron/Minerals/Multivitamins (Theragran M) 1 tab PO DAILY [facility] Last Admin: 05/23/18 10:04 Dose: 1 tab Melatonin (Melatonin) 3 mg PO HS PRN PRN Reason: Insomnia Last Admin: 05/23/18 00:54 Dose: 3 mg Mirtazapine (Remeron) 15 mg PO HS [facility] Last Admin: 05/23/18 21:13 Dose: 15 mg Morphine Sulfate (Ms Contin) 15 mg PO Q8H PRN PRN Reason: Pain Last Admin: 05/23/18 19:37 Dose: 15 mg Tylenol #4 Patient's (Home Medication) 1 each PO Q8H PRN PRN Reason: Pain Pravastatin Sodium (Pravachol) 80 mg PO HS [facility] Last Admin: 05/23/18 21:13 Dose: 80 mg Sodium Chloride (Flush - Normal Saline) 10 ml IVF PRN PRN PRN Reason: Saline Flush Last Admin: 05/23/18 21:15 Dose: 10 ml Venlafaxine HCl (Effexor Xr) 75 mg PO DAILY [facility] Last Admin: 05/23/18 10:06 Dose: 75 mg
[2018-05-24] MEDS: Multivitamin W/ Minerals 1 TAB PO SCH (10:03)
[2018-05-24] MEDS: Ubidecarenone 50 MG CAP PO SCH (10:04)
[2018-05-24] MEDS: Apixaban 5 MG TAB PO SCH (10:05)
[2018-05-24] MEDS: Venlafaxine HCl XR 75 MG CAP PO SCH (10:05)
[2018-05-24] MEDS: Amiodarone 200 MG TAB PO SCH (10:06)
[2018-05-24] MEDS: Carvedilol 3.125 MG TAB PO SCH (10:06)
== END 2018-05-24 10:30 | disposition home or self-care (01) ==
LOC: CCL 09:18 → 2SE 17:30
PROVIDERS: ADMIT Internal Medicine Cardiovascular Disease; ATTEND Internal Medicine Cardiovascular Disease
PROC: 02583ZZ Destruction of Conduction Mechanism, Percutaneous Approach (ICD-10-PCS; principal; 2018-05-22)
PROC: 02K83ZZ Map Conduction Mechanism, Percutaneous Approach (ICD-10-PCS; 2018-05-22)
PROC: 4A023FZ Measurement of Cardiac Rhythm, Percutaneous Approach (ICD-10-PCS; 2018-05-22)
PROC: 4A0234Z Measurement of Cardiac Electrical Activity, Percutaneous Approach (ICD-10-PCS; 2018-05-22)
DX: I48.1 Persistent atrial fibrillation (principal); I48.0 Paroxysmal atrial fibrillation; I11.0 Hypertensive heart disease with heart failure; I50.32 Chronic diastolic (congestive) heart failure; I36.1 Nonrheumatic tricuspid (valve) insufficiency; I48.4 Atypical atrial flutter; I25.10 Atherosclerotic heart disease of native coronary artery without angina pectoris; E78.5 Hyperlipidemia, unspecified; D64.9 Anemia, unspecified; Z90.89 Acquired absence of other organs; Z98.51 Tubal ligation status; Z79.82 Long term (current) use of aspirin; Z79.01 Long term (current) use of anticoagulants; Z79.899 Other long term (current) drug therapy
CPT/HCPCS: 76942; 80048; 85025 ×2; 85347 ×2; 85610; 85730; 92960; 93005; 93613; 93622; 93623; 93656; 93657; 93662; 96365; 96366; 96367; C1730; C1731; C1732 ×2; C1759; C1769; G0378; 36415; 93010; J0282; J1644; J2001; J2370; J2704; J2720; J3010; J7050; J7070

== ENCOUNTER 2018-09-30 13:11 | Outpatient (CLI) | payer MEDICARE, OTHER | END 2018-09-30 13:12 | disposition home or self-care (01) | LOC: CP 13:11 | PROVIDERS: ATTEND Internal Medicine Cardiovascular Disease | DX: R06.00 Dyspnea, unspecified (principal); Z79.899 Other long term (current) drug therapy | CPT/HCPCS: 94010; 94727; 94729 ==

== ENCOUNTER 2018-10-29 09:15 | Day surgery (SDC) | payer MEDICARE, OTHER ==
[2018-05-26 14:10] VITALS: BMI 28.2
[2018-10-29] MEDS ORDERED: Lidocaine 1% w/Epinephrine 1:100K 20 ML VIAL ONE (09:49)
--- NOTE | 2018-10-29 12:29 | OP ---
DATE OF PROCEDURE: 10/29/2018 PROCEDURE PERFORMED: Loop recorder insertion. REASON FOR PROCEDURE: Ms. Walls is an 83-year-old woman with prior pulmonary venous isolation procedure, intermittent recurring atrial fibrillation, near syncopal spells, possible bradycardia, here for a LINQ insertion to monitor meghana or tachyarrhythmia episodes in the future. DESCRIPTION OF PROCEDURE: The patient received no sedation. The chest area was prepped, draped, and anesthetized using subcutaneous lidocaine with the standard [employer] tool kit. The LINQ recorder was inserted. The wound was closed with Steri-Strips and Dermabond. The patient tolerated the procedure well. No complications noted. CONCLUSION: Successful loop recorder implantation. DEVICE PARAMETERS: Model number [id number] and serial number [id number]. PLAN: Continue monitoring. Job ID: [id number]
== END 2018-10-29 11:19 | disposition home or self-care (01) ==
LOC: CCL 09:15
PROVIDERS: ATTEND Internal Medicine Cardiovascular Disease
PROC: 0JH632Z Insertion of Monitoring Device into Chest Subcutaneous Tissue and Fascia, Percutaneous Approach (ICD-10-PCS; principal; 2018-10-29)
DX: I48.0 Paroxysmal atrial fibrillation (principal); I25.10 Atherosclerotic heart disease of native coronary artery without angina pectoris; I10 Essential (primary) hypertension; E78.5 Hyperlipidemia, unspecified; I05.1 Rheumatic mitral insufficiency; I45.10 Unspecified right bundle-branch block; Z95.5 Presence of coronary angioplasty implant and graft; Z79.82 Long term (current) use of aspirin; Z79.899 Other long term (current) drug therapy
CPT/HCPCS: 33285; C1764; J2001

== ENCOUNTER 2019-05-27 06:29 | Day surgery (SDC) | payer MEDICARE, OTHER ==
[2019-05-26 08:38] VITALS: BMI 27.4
[2019-05-27 07:25] LABS: #Eosinphils 0.2 thou/uL (0.0-0.7); #Lymphocytes 1.5 thou/uL (1.20-3.40); #Monocytes 0.6 thou/uL (0.11-0.59); #Neutrophils 3.5 thou/uL (1.40-6.50); %Basophils 0.8 % (0.0-1.0); %Lymphocytes 25.7 % (21.0-51.0); %Monocytes 9.6 % (0.0-10.0); %Neutrophils 59.9 % (42.0-75.0); Hemoglobin 10.5 g/dL (12.0-16.0); Mean Corpuscular HGB CONC 31.9 g/dL (32.0-36.0); Mean Corpuscular Hemoglobin 26.1 pg (27.0-31.0); Mean Corpuscular Volume 81.9 fL (78.0-98.0); Mean Platelet Volume 8.7 fL (7.4-10.4); Platelet Count 254 thou/uL (130-400); RBC Distribution Width 13.3 % (11.5-14.5); Red Blood Cell (RBC) Count 4.03 mill/uL (4.20-5.40); White Blood Cell (WBC) Count 5.9 thou/uL (4.8-10.8)
[2019-05-27 07:35] LABS: INR-International Normal Ratio 1.3; PTT 37.5 SEC (22.9-36.1); Prothrombin Time 16.3 SEC (12.0-14.7)
[2019-05-27 07:43] LABS: Anion Gap 9 mmol/L (10-20); BUN (Urea Nitrogen) 12 mg/dL (9.8-20.1); Calc. Creatinine Clearance 51 mL/min (70-130); Calcium 8.7 mg/dL (7.8-10.44); Carbon Dioxide 27 mmol/L (23-31); Chloride 108 mmol/L (98-107); Estimated GFR-MDRD 52; Glucose 93 mg/dL (83-110); Potassium 4.2 mmol/L (3.5-5.1); Sodium 140 mmol/L (136-145)
[2019-05-27] MEDS ORDERED: PROPOFOL 20 ML ONE (08:06)
--- NOTE | 2019-05-27 10:38 | OP ---
DATE OF PROCEDURE: 05/27/2019 PROCEDURE PERFORMED: External cardioversion. REASON FOR PROCEDURE: Ms. Walls is an 83-year-old female with prior history of atrial fibrillation, persisting, underwent a pulmonary venous isolation procedure in the past. She has had recurrences requiring amiodarone suppression, but now she is out of rhythm. Plans are made for Watchman redo ablation in the near future [place], but she is here for an interim cardioversion, on continued amiodarone and oral anticoagulant therapy which was uninterrupted. DESCRIPTION OF PROCEDURE: The patient received propofol by Anesthesia specialist. After adequate level of sedation achieved, a synchronized 50 joule shock promptly converted the patient back to sinus rhythm. Initial rhythm was 50 beats per minute. CONCLUSION: Successful cardioversion. PLAN: Continue monitoring for bradycardia. Continue low-dose amiodarone and oral anticoagulation as well. Plan with Watchman procedure and redo ablation in near future. Job ID: [id number]
== END 2019-05-27 09:29 | disposition home or self-care (01) ==
LOC: CCL 06:29
PROVIDERS: ATTEND Internal Medicine Cardiovascular Disease
PROC: 5A2204Z Restoration of Cardiac Rhythm, Single (ICD-10-PCS; principal; 2019-05-27)
DX: I48.0 Paroxysmal atrial fibrillation (principal); I25.10 Atherosclerotic heart disease of native coronary artery without angina pectoris; I10 Essential (primary) hypertension; E78.5 Hyperlipidemia, unspecified; F32.9 Major depressive disorder, single episode, unspecified; F41.9 Anxiety disorder, unspecified; Z79.01 Long term (current) use of anticoagulants; Z79.82 Long term (current) use of aspirin; Z79.899 Other long term (current) drug therapy; Z98.890 Other specified postprocedural states; Z95.1 Presence of aortocoronary bypass graft
CPT/HCPCS: 80048; 85025; 85610; 85730; 92960; J2704

== ENCOUNTER 2020-02-01 16:14 | Inpatient (IN) | payer MEDICARE, OTHER ==
[~2020-02-01 16:14] MED LIST: Iopamidol-370 76% 500 ML 1 ML ONE
[2020-02-01 16:44] LABS: #Eosinphils 0.1 thou/uL (0.0-0.7); #Lymphocytes 1.1 thou/uL (1.20-3.40); #Monocytes 0.6 thou/uL (0.11-0.59); #Neutrophils 4.2 thou/uL (1.40-6.50); %Basophils 0.8 % (0.0-1.0); %Eosinophils 2.2 % (0.0-10.0); %Lymphocytes 18.5 % (21.0-51.0); %Monocytes 9.3 % (0.0-10.0); %Neutrophils 69.2 % (42.0-75.0); Hemoglobin 9.7 g/dL (12.0-16.0); Mean Corpuscular HGB CONC 32.2 g/dL (32.0-36.0); Mean Corpuscular Hemoglobin 26.1 pg (27.0-31.0); Mean Corpuscular Volume 81.1 fL (78.0-98.0); Mean Platelet Volume 8.7 fL (7.4-10.4); Platelet Count 188 thou/uL (130-400); RBC Distribution Width 18.3 % (11.5-14.5); Red Blood Cell (RBC) Count 3.71 mill/uL (4.20-5.40); White Blood Cell (WBC) Count 6.1 thou/uL (4.8-10.8)
--- NOTE | 2020-02-01 17:09 | RAD ---
XR Chest 1 View Portable History: CHF Comparison: Radiograph April 03, 2018 Findings: Marked enlargement of the cardiac silhouette, new from the comparison exam. Mild pulmonary edema. Small effusions. No pneumothorax. Multiple midline sternotomy wires. Impression: Moderate decompensated congestive heart failure. Heart size is enlarged, new from the com parison examination and may reflect new onset cardiomegaly versus pericardial effusion.
[2020-02-01 17:11] LABS: ALT (SGPT) 14 U/L (8-55); AST (SGOT) 23 U/L (5-34); Albumin 3.5 g/dL (3.4-4.8); Alkaline Phosphatase 77 U/L (40-110); Anion Gap 14 mmol/L (10-20); BUN (Urea Nitrogen) 21 mg/dL (9.8-20.1); Bilirubin, Total 0.3 mg/dL (0.2-1.2); Calc. Creatinine Clearance 0 mL/min (70-130); Calcium 8.5 mg/dL (7.8-10.44); Carbon Dioxide 24 mmol/L (23-31); Chloride 106 mmol/L (98-107); Estimated GFR-MDRD 45; Globulin 2.7 g/dL (2.4-3.5); Glucose 114 mg/dL (83-110); Potassium 4.5 mmol/L (3.5-5.1); Protein, Total 6.2 g/dL (6.0-8.3); Sodium 139 mmol/L (136-145)
[2020-02-01] MEDS ORDERED: Furosemide 100 MG/10 ML VIAL ONE (17:34)
--- NOTE | 2020-02-01 18:39 | CT ---
CT arteriogram chest with IV contrast and 3-D imaging HISTORY: Dyspnea. Chest pain. COMPARISON: 03/14/2013 and 05/14/2016. FINDINGS: There is good contrast opacification of the central pulmonary arteries without filling defe ct evident. Contrast has not reached the aorta at the time of imaging. There is calcification throughout the arterial structures. Borderline size lymph nodes scattered throughout the mediastinum are similar in appearance to the miesha or exam. Moderate-sized hiatal hernia is larger than on the previous study. Subtle groundglass rectum opacity and linear scarring throughout each lung are again demonstrated. Po stoperative changes of the right humeral head partially visualized. Postoperative changes of the mediastinum and left subclavian cardiac electronic device noted. Cyst within the posterior dome of the liver has enlarged to 1.9 cm. Calcified granulomata are consist ent with healed granulomatous disease. IMPRESSION : No evidence of pulmonary embolus. Prominent atherosclerosis. Enlarging hiatal hernia. Other chronic-type findings as detailed above.
[2020-02-01 18:40] LABS: Bacteria/HPF None Seen HPF (None Seen); Bilirubin Negative (Negative); Blood, Urine Negative (Negative); Clarity Clear (Clear); Glucose, Urine (Dipstick) Normal (Negative); Ketone, Urine Negative (Negative); Leukocyte 75 Leu/uL (Negative); Nitrite Negative (Negative); Protein, Urine (Dipstick) Negative (Neg-Trace); RBC/HPF 0-3 HPF (0-3); Specific Gravity, Urine 1.009 (1.002-1.036); Squamous Epithelial None Seen HPF (0-3); Urobilinogen Normal mg/dL (Less than 2); WBC/HPF 0-3 HPF (0-3)
[2020-02-01 22:10] LABS: Troponin I Less than 0.010 ng/mL (< 0.028)
[2020-02-01] MEDS ORDERED: Metoprolol Tartrate 5 MG/5 ML VIAL IVP PRN (22:12)
--- NOTE | 2020-02-01 23:01 | HP ---
REASON FOR ADMISSION: Shortness of breath. HISTORY OF PRESENT ILLNESS: This is an 84-year-old female patient, who presented to the emergency room complaining of shortness of breath that started the day before her presentation. She has not been able to lay flat on her back. She had to sleep while sitting up. She did report also increased bilateral lower extremity edema. She did report being congested for the past three months. Patient is known to have AFib, status post multiple cardioversions. She is scheduled to undergo a Watchman procedure, but this was delayed due to the coronavirus. PAST MEDICAL HISTORY: 1. Pneumonia. 2. Atrial fibrillation. 3. High blood pressure. 4. Coronary artery disease. 5. Obstructive sleep apnea. 6. Depression. 7. Osteoarthritis. 8. High cholesterol. 9. Status post bilateral total shoulder replacements. 10. Coronary artery bypass. 11. Status post left radial head repair. SOCIAL HISTORY: She does not smoke. Does not drink alcohol. FAMILY HISTORY: Negative for premature coronary artery disease. ALLERGIES: NO KNOWN DRUG ALLERGY. REVIEW OF SYSTEMS: All systems reviewed, except the above mentioned, found to be negative. PHYSICAL EXAMINATION: GENERAL: Awake, alert, oriented, does not appear in distress. VITAL SIGNS: Her blood pressure is 140/95, heart rate of 110, and saturating 97% on room air. HEAD: Nontraumatic and normocephalic. Pupils equal and reactive. Extraocular movements are intact. Nonicteric sclerae. Well-injected conjunctivae. Oral mucosa normal. Nasal mucosa normal. NECK: Supple. No adenopathy. No murmur. Thyroid is not palpable. Trachea is midline. No supraclavicular adenopathy. HEART: S1, S2, regular. No murmur. No gallops. No friction rubs. No displacement of PMI. LUNGS: Clear to auscultation bilaterally. No wheezes, rhonchi, no crackles. ABDOMEN: Bowel sounds are positive. Nontender abdomen. No hepatosplenomegaly. EXTREMITIES: 1+ pitting edema, bilateral lower extremities. EKG shows sinus tachycardia. LABORATORY DATA: Blood work shows a WBC of 6.1, hemoglobin 9.7, and platelets of 188. INR 1.3. Sodium 139; potassium 4.5; bicarb 24; BUN 21; and creatinine 1.14, her baseline is around 1.02. BNP is 354. Urinalysis negative for infection. CT of the chest shows no evidence of evidence of PE. Chest x-ray shows moderate decompensated congestive heart failure. Heart size is enlarged, new from comparison examination and may reflect new onset cardiomegaly versus pericardial effusion. ASSESSMENT AND PLAN: This is an 84-year-old female patient presenting with shortness of breath and bilateral lower extremity swelling secondary to congestive heart failure exacerbation. She is known to have atrial fibrillation that required multiple cardioversions. She is scheduled for a Watchman procedure. Patient will be admitted to telemetry. We will start her on IV Lasix. She already received a dose and did diurese and appears to be doing much better. She told me that Dr. Zepeda held her Lasix. I am not clear on the reason behind that. We will continue the patient on Eliquis and we will continue cycling cardiac enzymes. For DVT prophylaxis will be SCDs. I did discuss with her code status and she wishes to be full code. I am awaiting for the med rec to be done, so I could reconcile her medication. Job ID: [id number]
[2020-02-02] MEDS ORDERED: Acetaminophen 325 MG TAB ONE ×2 (00:21→00:22)
[2020-02-02 01:10] LABS: Troponin I Less than 0.010 ng/mL (< 0.028)
[2020-02-02 04:44] LABS: #Eosinphils 0.2 thou/uL (0.0-0.7); #Lymphocytes 1.2 thou/uL (1.20-3.40); #Monocytes 0.7 thou/uL (0.11-0.59); #Neutrophils 4.8 thou/uL (1.40-6.50); %Basophils 0.4 % (0.0-1.0); %Eosinophils 2.3 % (0.0-10.0); %Lymphocytes 18.1 % (21.0-51.0); %Monocytes 9.8 % (0.0-10.0); %Neutrophils 69.4 % (42.0-75.0); Hemoglobin 9.8 g/dL (12.0-16.0); Mean Corpuscular HGB CONC 30.8 g/dL (32.0-36.0); Mean Corpuscular Hemoglobin 24.9 pg (27.0-31.0); Platelet Count 194 thou/uL (130-400); RBC Distribution Width 18.8 % (11.5-14.5); Red Blood Cell (RBC) Count 3.95 mill/uL (4.20-5.40); White Blood Cell (WBC) Count 6.9 thou/uL (4.8-10.8)
[2020-02-02 05:01] LABS: Anion Gap 15 mmol/L (10-20); BUN (Urea Nitrogen) 20 mg/dL (9.8-20.1); Calc. Creatinine Clearance 29 mL/min (70-130); Calcium 8.6 mg/dL (7.8-10.44); Carbon Dioxide 26 mmol/L (23-31); Chloride 103 mmol/L (98-107); Estimated GFR-MDRD 55; Glucose 88 mg/dL (83-110); Potassium 3.6 mmol/L (3.5-5.1); Sodium 140 mmol/L (136-145)
[2020-02-02] MEDS ORDERED: Loperamide HCl 2 MG CAP PO PRN (08:03)
[2020-02-02] MEDS ORDERED: Senokot S 8.6-50 MG TAB PO PRN (08:03)
[2020-02-02] MEDS ORDERED: Sodium Chloride 0.65% Nasal 44 ML BOT EA NARE PRN (08:03)
[2020-02-02] MEDS ORDERED: Cepastat Lozenges 1 LOZ PO PRN (08:03)
[2020-02-02] MEDS ORDERED: Loratadine 10 MG TAB PO PRN (08:03)
[2020-02-02] MEDS ORDERED: Bisacodyl 10 MG SUPP PR PRN (08:03)
[2020-02-02] MEDS ORDERED: hydrALAZINE 20 MG/ML VIAL SLOW IVP PRN (08:03)
--- NOTE | 2020-02-02 09:57 | PDOC.HOSPP ---
- Subjective Encounter Date: 02/02/20 Encounter Time: 07:10 Subjective: Patient has dry hacking cough, denies any chest pain, no fever, she was lying flat - Objective Vital Signs & Weight: Vital Signs (12 hours) Temp Pulse Resp BP Pulse Ox 02/02/20 08:16 98.7 F 119 H 17 135/111 H 96 02/02/20 04:53 96 02/02/20 04:17 98.7 F 91 16 129/70 97 Weight Weight 94 lb 0.082 oz I&O: 02/01/20 02/02/20 02/03/20 06:59 06:59 06:59 Intake Total 200 Output Total 4050 Balance -3850 Result Diagrams: 02/02/20 04:24 02/02/20 04:24 Radiology Reviewed by me: Yes EKG Reviewed by me: Yes Hospitalist ROS - Review of Systems Constitutional: denies: fever, chills, sweats, weakness, malaise, other Respiratory: reports: cough, shortness of breath, SOB with excertion. denies: dry, hemoptysis, pleuritic pain, sputum, wheezing, other Cardiovascular: denies: chest pain, palpitations, orthopnea, paroxysmal noc. dyspnea, edema, light headedness, other Gastrointestinal: denies: nausea, vomiting, abdominal pain, diarrhea, constipation, melena, hematochezia, other Genitourinary: denies: dysuria, frequency, incontinence, hematuria, retention, other Musculoskeletal: denies: neck pain, shoulder pain, arm pain, back pain, hand pain, leg pain, foot pain, other - Exam General Appearance: NAD, awake alert Eye: PERRL, anicteric sclera ENT: normocephalic atraumatic, no oropharyngeal lesions Neck: symmetric, no JVD, no thyromegaly Heart: RRR, no murmur, no gallops, no rubs Respiratory: no wheezes, no rales, no ronchi Gastrointestinal: soft, non-tender, non-distended, normal bowel sounds Extremities: no cyanosis, no clubbing Skin: normal turgor, no lesions Neurological: no focal deficits Musculoskeletal: normal tone, normal strength Psychiatric: normal affect, normal behavior Hosp A/P (1) Acute on chronic diastolic (congestive) heart failure Code(s): I50.33 - ACUTE ON CHRONIC DIASTOLIC (CONGESTIVE) HEART FAILURE Status: Acute (2) CAD (coronary artery disease) Code(s): I25.10 - ATHSCL HEART DISEASE OF [place] CORONARY ARTERY W/O ANG PCTRS Status: Chronic Qualifiers: Coronary Disease-Associated Artery/Lesion type: [place] artery [place] vs. transplanted heart: [place] heart Associated angina: without angina Qualified Code(s): I25.10 - Atherosclerotic heart disease of [place] coronary artery without angina pectoris (3) Chronic anemia Code(s): D64.9 - ANEMIA, UNSPECIFIED Status: Chronic (4) Chronic anticoagulation Code(s): Z79.01 - LONG-TERM (CURRENT) USE OF ANTICOAGULANTS Status: Chronic (5) Chronic narcotic use Code(s): F11.90 - OPIOID USE, UNSPECIFIED, UNCOMPLICATED Status: Chronic (6) Chronic stage c diastolic heart failure Code(s): I50.32 - CHRONIC DIASTOLIC (CONGESTIVE) HEART FAILURE Status: Chronic (7) Dyslipidemia Code(s): E78.5 - HYPERLIPIDEMIA, UNSPECIFIED Status: Chronic (8) HTN (hypertension) Code(s): I10 - ESSENTIAL (PRIMARY) HYPERTENSION Status: Chronic Qualifiers: (9) PAF (paroxysmal atrial fibrillation) Code(s): I48.0 - PAROXYSMAL ATRIAL FIBRILLATION Status: Chronic (10) Severe tricuspid regurgitation by prior echocardiogram Code(s): I07.1 - RHEUMATIC TRICUSPID INSUFFICIENCY Status: Chronic - Plan old records reviewed/req Plan Continue diuresis, continue Lasix I will add doxycycline 100 mg p.o. twice daily given patient has significant hacking cough, suspecting atypical pathology, Covid test is pending Currently patient's heart rate is variable, will continue to monitor, I have reconciled her home medication We will wean off oxygen and ambulate and check oxygen saturation on room air, Discharge soon
[2020-02-02] MEDS ORDERED: Carvedilol 6.25 MG TAB PO SCH (10:15)
[2020-02-02] MEDS ORDERED: Furosemide 40 MG/4 ML VIAL ONE (10:37)
[2020-02-02] MEDS ORDERED: Aspirin Chewable 81 MG TAB ONE ×2 (10:37→10:43)
[2020-02-02] MEDS: Aspirin 81 mg Enteric Coated Tablet PO SCH (10:41)
[2020-02-02] MEDS: Furosemide 40 MG/4 ML VIAL SLOW IVP SCH (10:41)
[2020-02-02] MEDS: Fluticasone Propionate Nasal Spray 16 gm Bottle NASAL SCH (12:11)
[2020-02-02] MEDS: Apixaban 5 MG TAB PO SCH ×2 (12:11→21:00)
[2020-02-02 15:41] LABS: SARS-CoV-2 MS2 Positive; SARS-CoV-2 N Gene Negative; SARS-CoV-2 S Gene Negative; SARS-CoV-2 by NAA Not Detected (NotDetected); SARS-CoV-2 orf1ab Negative
[2020-02-02] MEDS: Morphine ER 15 MG TAB PO PRN (15:59)
[2020-02-02 16:15] VITALS: BMI 31.6
[2020-02-02] MEDS: Atorvastatin Calcium 20 MG TAB PO SCH (20:59)
[2020-02-02] MEDS: Doxycycline 100 MG CAP PO SCH (21:00)
[2020-02-02] MEDS: Carvedilol 6.25 MG TAB PO SCH (21:00)
[2020-02-02] MEDS: Gabapentin 300 MG CAP PO SCH (21:00)
[2020-02-03] MEDS: Ubidecarenone 50 MG CAP PO SCH (08:54)
[2020-02-03] MEDS: Aspirin 81 mg Enteric Coated Tablet PO SCH (08:55)
[2020-02-03] MEDS: Doxycycline 100 MG CAP PO SCH ×2 (08:55→20:19)
[2020-02-03] MEDS: Vit A,C & E/Lutein/Minerals Tablet PO SCH (08:55)
[2020-02-03] MEDS: Carvedilol 6.25 MG TAB PO SCH ×2 (08:55→20:19)
[2020-02-03] MEDS: Cholecalciferol 1,000 UNITS (25 MCG) TAB PO SCH (08:56)
[2020-02-03] MEDS: Mirtazapine 15 MG TAB PO SCH (08:56)
[2020-02-03] MEDS: Apixaban 5 MG TAB PO SCH ×2 (08:56→20:19)
[2020-02-03] MEDS: Amiodarone 200 MG TAB PO SCH (08:56)
[2020-02-03] MEDS: Furosemide 40 MG/4 ML VIAL SLOW IVP SCH (08:56)
[2020-02-03] MEDS: Fluticasone Propionate Nasal Spray 16 gm Bottle NASAL SCH (08:57)
[2020-02-03] MEDS: Venlafaxine HCl XR 75 MG CAP PO SCH (09:26)
[2020-02-03] MEDS ORDERED: FLU VACC QS2020-21(65YR UP)/PF 240 MCG/0.7 ML SYRINGE IM ONE (14:45)
[2020-02-03] MEDS: Diabetic Tussin 200 MG/10 ML UDCUP PO PRN (16:08)
--- NOTE | 2020-02-03 18:30 | PDOC.HOSPP ---
- Subjective Encounter Date: 02/03/20 Encounter Time: 11:15 Subjective: Patient up in bed denies any complaints. - Objective Vital Signs & Weight: Vital Signs (12 hours) Temp Pulse Resp BP BP Pulse Ox 02/03/20 15:48 97.8 F 95 16 150/76 H 99 02/03/20 11:25 97.5 F L 95 16 108/64 95 02/03/20 07:30 97.5 F L 107 H 18 141/98 H 94 L Weight Weight 195 lb 8 oz I&O: 02/02/20 02/03/20 02/04/20 06:59 06:59 06:59 Intake Total 200 Output Total 4050 1250 Balance -3850 -1250 Result Diagrams: 02/02/20 04:24 02/02/20 04:24 Hospitalist ROS - Review of Systems Respiratory: reports: shortness of breath Cardiovascular: denies: chest pain, palpitations, orthopnea, paroxysmal noc. dyspnea, edema, light headedness, other Gastrointestinal: denies: nausea, vomiting, abdominal pain, diarrhea, constipation, melena, hematochezia, other - Medication Medications: Active Medications Generic Name Dose Route Start Last Admin Trade Name Freq PRN Reason Stop Dose Admin Amiodarone HCl 200 mg 02/03/20 09:00 02/03/20 08:56 Amiodarone 200 Mg Tab PO 200 mg DAILY INDIGO Administration Apixaban 5 mg 02/02/20 09:00 02/03/20 08:56 Apixaban 5 Mg Tab PO 5 mg BID INDIGO Administration Aspirin 81 mg 02/02/20 09:00 02/03/20 08:55 Aspirin 81 Mg Enteric Coated Tablet PO 81 mg DAILY INDIGO Administration Atorvastatin Calcium 20 mg 02/02/20 21:00 02/02/20 20:59 Atorvastatin Calcium 20 Mg Tab PO 20 mg HS INDIGO Administration Carvedilol 12.5 mg 02/02/20 21:00 02/03/20 08:55 Carvedilol 6.25 Mg Tab PO 12.5 mg BID INDIGO Administration Cholecalciferol 2,000 units 02/03/20 09:00 02/03/20 08:56 Cholecalciferol 1,000 Units (25 Mcg) Tab PO 2,000 units DAILY INDIGO Administration Coenzyme Q10 100 mg 02/03/20 09:00 02/03/20 08:54 Ubidecarenone 50 Mg Cap PO 100 mg DAILY INDIGO Administration Doxycycline Hyclate 100 mg 02/02/20 21:00 02/03/20 08:55 Doxycycline 100 Mg Cap PO 100 mg BID INDIGO Administration Fluticasone Propionate 0 gm 02/02/20 09:00 02/03/20 08:57 Fluticasone Propionate Nasal [place] 16 Gm Bottle NASAL 2 spr DAILY INDIGO Administration Furosemide 40 mg 02/02/20 09:00 02/03/20 08:56 Furosemide 40 Mg/4 Ml Vial SLOW IVP 40 mg DAILY INDIGO Administration Gabapentin 300 mg 02/02/20 21:00 02/02/20 21:00 Gabapentin 300 Mg Cap PO 300 mg HS INDIGO Administration Guaifenesin 200 mg 02/02/20 08:03 02/03/20 16:08 Diabetic Tussin 200 Mg/10 Ml Udcup PO 200 mg Q4H PRN Administration Cough Loratadine 10 mg 02/02/20 08:03 02/03/20 16:08 Loratadine 10 Mg Tab PO 10 mg DAILYPRN PRN Administration Sinus Symptoms Mirtazapine 15 mg 02/03/20 09:00 02/03/20 08:56 Mirtazapine 15 Mg Tab PO 15 mg DAILY INDIGO Administration Morphine Sulfate 15 mg 02/02/20 08:01 02/02/20 15:59 Morphine Er 15 Mg Tab PO 15 mg Q8H PRN Administration Moderate Pain (4-6) Multivitamins/Minerals 1 tab 02/03/20 09:00 02/03/20 08:55 Vit A,C & E/Lutein/Minerals Tablet PO 1 tab DAILY INDIGO Administration Venlafaxine HCl 50 mg 02/03/20 09:00 02/03/20 09:26 Venlafaxine Hcl Xr 75 Mg Cap PO Not Given DAILY INDIGO - Exam Heart: negative: RRR, no murmur, no gallops, no rubs, normal peripheral pulses, irregular, diminshed peripheral pulses, murmur present, II/IV, III/IV Respiratory: rales Gastrointestinal: negative: soft, non-tender, non-distended, normal bowel sounds, no palpable masses, no hepatomegaly, no splenomegaly, no bruit, no guarding, no rigidity, tender to palpation, distended, diminished bowl sounds, voluntary guarding Extremities: 1+ LE edema Hosp A/P (1) Acute on chronic diastolic (congestive) heart failure Code(s): I50.33 - ACUTE ON CHRONIC DIASTOLIC (CONGESTIVE) HEART FAILURE Status: Acute (2) S/P ablation of atrial fibrillation Code(s): Z98.890 - OTHER SPECIFIED POSTPROCEDURAL STATES; Z86.79 - PERSONAL HISTORY OF OTHER DISEASES OF THE CIRCULATORY SYSTEM Status: Acute (3) CAD (coronary artery disease) Code(s): I25.10 - ATHSCL HEART DISEASE OF [place] CORONARY ARTERY W/O ANG PCTRS Status: Chronic Qualifiers: Coronary Disease-Associated Artery/Lesion type: [place] artery [place] vs. transplanted heart: [place] heart Associated angina: without angina Qualified Code(s): I25.10 - Atherosclerotic heart disease of [place] coronary artery without angina pectoris (4) Chronic anticoagulation Code(s): Z79.01 - MCFP (CURRENT) USE OF ANTICOAGULANTS Status: Chronic (5) HTN (hypertension) Code(s): I10 - ESSENTIAL (PRIMARY) HYPERTENSION Status: Chronic Qualifiers: (6) PAF (paroxysmal atrial fibrillation) Code(s): I48.0 - PAROXYSMAL ATRIAL FIBRILLATION Status: Chronic - Plan Patient states that she has been having a cough however clear sputum. We will continue doxycycline. Patient is on full dose anticoagulation will continue. We will continue IV Lasix. Cardiology to see the patient.
[2020-02-03] MEDS: Atorvastatin Calcium 20 MG TAB PO SCH (20:19)
[2020-02-03] MEDS: Gabapentin 300 MG CAP PO SCH (20:19)
[2020-02-03] MEDS ORDERED: Melatonin 3 MG TAB PO PRN (20:59)
[2020-02-03] MEDS: Benzonatate 100 MG CAP PO PRN (21:36)
[2020-02-03] MEDS: Morphine ER 15 MG TAB PO PRN (21:42)
[2020-02-04] MEDS: Diabetic Tussin 200 MG/10 ML UDCUP PO PRN ×2 (03:18→08:00)
[2020-02-04 07:55] VITALS: TEMP 97.9
[2020-02-04] MEDS: Amiodarone 200 MG TAB PO SCH (07:56)
[2020-02-04] MEDS: Carvedilol 6.25 MG TAB PO SCH (07:56)
[2020-02-04] MEDS: Vit A,C & E/Lutein/Minerals Tablet PO SCH (07:56)
[2020-02-04] MEDS: Apixaban 5 MG TAB PO SCH (07:56)
[2020-02-04] MEDS: Mirtazapine 15 MG TAB PO SCH (07:57)
[2020-02-04] MEDS: Furosemide 40 MG/4 ML VIAL SLOW IVP SCH (07:57)
[2020-02-04] MEDS: Cholecalciferol 1,000 UNITS (25 MCG) TAB PO SCH (07:57)
[2020-02-04] MEDS: Ubidecarenone 50 MG CAP PO SCH (07:57)
[2020-02-04] MEDS: Benzonatate 100 MG CAP PO PRN (07:57)
[2020-02-04] MEDS: Aspirin 81 mg Enteric Coated Tablet PO SCH (07:57)
[2020-02-04] MEDS: Doxycycline 100 MG CAP PO SCH (07:57)
[2020-02-04] MEDS: Fluticasone Propionate Nasal Spray 16 gm Bottle NASAL SCH (07:58)
[2020-02-04] MEDS: Venlafaxine HCl XR 75 MG CAP PO SCH (10:14)
[2020-02-04] MEDS ORDERED: Venlafaxine HCl XR 75 MG CAP PO SCH (10:30)
[2020-02-04] MEDS ORDERED: Digoxin 0.5 MG/2 ML AMP SLOW IVP SCH (10:45)
[2020-02-04 11:28] VITALS: BP 119/82
--- NOTE | 2020-02-04 15:14 | DIS ---
DATE OF ADMISSION: 02/03/2020 DATE OF DISCHARGE: 02/04/2020 DISCHARGE DIAGNOSES: 1. Shortness of breath. 2. Paroxysmal atrial fibrillation. 3. Hypertension. 4. Cyst in the posterior dome of the liver enlarged to 1.9 cm. HOSPITAL COURSE: The patient is a very pleasant 84-year-old female, who initially presented to the hospital with shortness of breath. She is on Eliquis. The patient had a CTA, which was negative for any acute pulmonary embolism. She was noted to have a posterior dome liver cyst and the liver has enlarged to 1.9 cm. She also has a calcified granuloma. I have discussed this with the patient and the patient is aware to follow up with her primary in regard to this. She also was noted to have an enlarging hiatal hernia. The patient initially was treated for possible acute on chronic diastolic heart failure. Her BNP was 354. She was treated with some IV diuretics. Her troponin x3 were negative. She did have some mild acute kidney injury, which was resolved. She was seen by Cardiology and some of medications were changed. HOME MEDICATIONS: 1. Amiodarone 200 mg b.i.d. 2. Lasix 20 mg as needed. 3. Losartan 25 mg daily. 4. Morphine sulfate as needed. 5. Venlafaxine 75 mg daily. 6. Pravastatin 80 mg at bedtime. 7. Gabapentin 300 mg q.8 hours. 8. Mirtazapine 15 mg daily. 9. Norvasc 5 mg as needed. 10. Carvedilol 25 b.i.d. 11. Fluticasone two spray as needed. 12. Multivitamin one p.o. daily. It appears that the patient was supposed to be on lisinopril per the diesel powerplant mechanic medication list; however, the patient was not on that. The patient stated that she has been having this cough going on for the past few months. I am not sure if her primary care doctor took her off lisinopril because per the diesel powerplant mechanic notes she was supposed to be on lisinopril. We changed it to Cozaar. The patient will follow up with primary care doctor and also she will follow up with Cardiology. She is supposed to have a Watchman procedure with electrophysiology. PHYSICAL EXAMINATION: VITAL SIGNS: The patient's vital signs on discharge; temperature of 97.9, respiratory rate 19, oxygen saturation 95, blood pressure 119/82, and heart rate of 100. GENERAL: She is awake, alert, and oriented x3. Does not appear in distress. CV: S1 and S2 present. No murmurs, rubs, or gallops. She was noted to be a little tachycardic on ambulation; however, we did increase her amiodarone from 200 mg daily to 200 mg twice a day and she will follow up with Cardiology. Her CT as I mentioned was negative for PE. The patient stated that she felt well and she has been educated on limiting amount of water intake and she will follow up with her Primary and Cardiology. Job ID: [id number]
[2020-02-05] MEDS ORDERED: Venlafaxine HCl XR 75 MG CAP PO SCH (09:00)
== END 2020-02-04 13:53 | disposition home or self-care (01) | DRG 292 ==
LOC: ERS 16:14 → ERHOLD 21:19 → 2NO 02-02 14:16 → OBSVTOIN 02-03 11:18
PROVIDERS: ADMIT Internal Medicine; ATTEND Internal Medicine
DX: I11.0 Hypertensive heart disease with heart failure (principal); N17.9 Acute kidney failure, unspecified; Z20.828 Contact with and (suspected) exposure to other viral communicable diseases; Z23 Encounter for immunization; I48.0 Paroxysmal atrial fibrillation; I50.33 Acute on chronic diastolic (congestive) heart failure; K76.89 Other specified diseases of liver; K46.9 Unspecified abdominal hernia without obstruction or gangrene; L92.9 Granulomatous disorder of the skin and subcutaneous tissue, unspecified; I25.10 Atherosclerotic heart disease of native coronary artery without angina pectoris; G47.33 Obstructive sleep apnea (adult) (pediatric); F32.9 Major depressive disorder, single episode, unspecified; M19.90 Unspecified osteoarthritis, unspecified site; Z96.612 Presence of left artificial shoulder joint; Z96.611 Presence of right artificial shoulder joint; E78.00 Pure hypercholesterolemia, unspecified; D64.9 Anemia, unspecified; I07.1 Rheumatic tricuspid insufficiency; E78.5 Hyperlipidemia, unspecified; F11.90 Opioid use, unspecified, uncomplicated; Z96.653 Presence of artificial knee joint, bilateral; Z79.01 Long term (current) use of anticoagulants; Z95.1 Presence of aortocoronary bypass graft; Z79.899 Other long term (current) drug therapy; Z79.82 Long term (current) use of aspirin; Z98.890 Other specified postprocedural states
CPT/HCPCS: 36415; 51702; 71045; 71275; 80048; 80053; 81003; 81015; 83880; 84484; 85025; 87635; 90471; 90662; 93005; 94760; 96374; 96375; 96376; G0008; G0378; J1940; Q9967; U0003

== ENCOUNTER 2020-12-09 10:45 | Inpatient (IN) | payer MEDICARE, OTHER ==
[2020-12-09 17:05] LABS: PTT 29.3 sec (22.0-33.0); Prothrombin Time 11.2 sec (9.5-12.1)
[2020-12-09 17:18] LABS: Hemoglobin 13.6 g/dL (12.0-15.5); Mean Corpuscular HGB CONC 31.3 g/dL (32.0-36.0); Mean Corpuscular Hemoglobin 29.1 pg (27.0-33.0); Mean Corpuscular Volume 92.7 fl (81.6-98.3); Mean Platelet Volume 11.2 fl (7.4-10.4); Platelet Count 231 10x3/uL (150-450); RBC Distribution Width 13.8 % (11.5-14.5); Red Blood Cell (RBC) Count 4.68 10x6/uL (3.90-5.03); White Blood Cell (WBC) Count 6.5 10x3/uL (3.5-10.5)
[2020-12-09 21:28] LABS: ALT (SGPT) 19 U/L (8-55); AST (SGOT) 30 U/L (5-34); Alkaline Phosphatase 83 U/L (40-110); Anion Gap 13 mmol/L (10-20); BUN (Urea Nitrogen) 16 mg/dL (9.8-20.1); Bilirubin, Total 0.6 mg/dL (0.2-1.2); Calc. Creatinine Clearance 0 mL/min (70-130); Calcium 9.2 mg/dL (7.8-10.44); Carbon Dioxide 29 mmol/L (23-31); Chloride 103 mmol/L (98-107); Globulin 2.7 g/dL (2.4-3.5); Glucose 77 mg/dL (83-110); Potassium 4.5 mmol/L (3.5-5.1); Protein, Total 6.7 g/dL (5.8-8.1); Sodium 140 mmol/L (136-145)
[2020-12-10 13:29] LABS: SARS-CoV-2 PCR by NAA Not Detected (NotDetected)
[2020-12-12 13:11] VITALS: BMI 28.7
[2020-12-14] MEDS ORDERED: Iopamidol 370 76% 100 ML VIAL ONE (09:06)
[2020-12-14] MEDS ORDERED: Glycopyrrolate 0.2 MG/ML 5 ML SYRINGE ONE (10:05)
[2020-12-14] MEDS ORDERED: PROPOFOL 200 MG/20 ML VIAL ONE (10:05)
[2020-12-14] MEDS ORDERED: Lidocaine 1% PF 5 ML VIAL ONE (10:05)
[2020-12-14] MEDS ORDERED: Rocuronium Bromide 10 MG/ML (10ML VIAL) ONE (10:05)
[2020-12-14] MEDS ORDERED: Dexamethasone 20 MG/5 ML VIAL ONE (10:05)
[2020-12-14] MEDS ORDERED: Ondansetron PF 4 MG/2 ML Vial ONE (10:05)
== END 2020-12-14 17:11 | disposition home or self-care (01) | DRG 274 ==
LOC: 2NO 12-14 06:52
PROVIDERS: ADMIT Internal Medicine Cardiovascular Disease; ATTEND Internal Medicine Cardiovascular Disease
PROC: 02L73DK Occlusion of Left Atrial Appendage with Intraluminal Device, Percutaneous Approach (ICD-10-PCS; principal; 2020-12-14)
PROC: B24BZZ4 Ultrasonography of Heart with Aorta, Transesophageal (ICD-10-PCS; 2020-12-14)
DX: I48.19 Other persistent atrial fibrillation (principal); Z00.6 Encounter for examination for normal comparison and control in clinical research program; Z20.822 Contact with and (suspected) exposure to COVID-19; E78.5 Hyperlipidemia, unspecified; I08.1 Rheumatic disorders of both mitral and tricuspid valves; I25.10 Atherosclerotic heart disease of native coronary artery without angina pectoris; I11.0 Hypertensive heart disease with heart failure; I50.9 Heart failure, unspecified; J30.2 Other seasonal allergic rhinitis; M19.90 Unspecified osteoarthritis, unspecified site; F32.9 Major depressive disorder, single episode, unspecified; Z95.0 Presence of cardiac pacemaker; Z87.19 Personal history of other diseases of the digestive system; Z79.82 Long term (current) use of aspirin; Z79.01 Long term (current) use of anticoagulants; Z79.899 Other long term (current) drug therapy; I48.4 Atypical atrial flutter; Z95.1 Presence of aortocoronary bypass graft; Z82.49 Family history of ischemic heart disease and other diseases of the circulatory system
CPT/HCPCS: 33340; 36430; 76942; 80053; 85027; 85347; 85610; 85730; 86850; 86900; 86901; 93306; 93312; C1759; J1100; J2405; J2704; Q9967; U0003; U0005

== ENCOUNTER 2020-12-09 11:08 | Outpatient (CLI) | payer MEDICARE, OTHER ==
[2020-12-09 17:05] LABS: PTT 29.3 sec (22.0-33.0); Prothrombin Time 11.2 sec (9.5-12.1)
[2020-12-09 17:18] LABS: Hemoglobin 13.6 g/dL (12.0-15.5); Mean Corpuscular HGB CONC 31.3 g/dL (32.0-36.0); Mean Corpuscular Hemoglobin 29.1 pg (27.0-33.0); Mean Corpuscular Volume 92.7 fl (81.6-98.3); Mean Platelet Volume 11.2 fl (7.4-10.4); Platelet Count 231 10x3/uL (150-450); RBC Distribution Width 13.8 % (11.5-14.5); Red Blood Cell (RBC) Count 4.68 10x6/uL (3.90-5.03); White Blood Cell (WBC) Count 6.5 10x3/uL (3.5-10.5)
[2020-12-09 21:28] LABS: ALT (SGPT) 19 U/L (8-55); AST (SGOT) 30 U/L (5-34); Alkaline Phosphatase 83 U/L (40-110); Anion Gap 13 mmol/L (10-20); BUN (Urea Nitrogen) 16 mg/dL (9.8-20.1); Bilirubin, Total 0.6 mg/dL (0.2-1.2); Calc. Creatinine Clearance 0 mL/min (70-130); Calcium 9.2 mg/dL (7.8-10.44); Carbon Dioxide 29 mmol/L (23-31); Chloride 103 mmol/L (98-107); Globulin 2.7 g/dL (2.4-3.5); Glucose 77 mg/dL (83-110); Potassium 4.5 mmol/L (3.5-5.1); Protein, Total 6.7 g/dL (5.8-8.1); Sodium 140 mmol/L (136-145)
[2020-12-10 13:29] LABS: SARS-CoV-2 PCR by NAA Not Detected (NotDetected)
[2020-12-11 16:53] LABS: Reference Lab Name LABCORP
[2020-12-11 16:54] LABS: Ref Lab Test Ordered CYTOCHROME P450
== END 2020-12-09 11:09 | disposition home or self-care (01) ==
LOC: LABBT 11:08
PROVIDERS: ATTEND Internal Medicine Cardiovascular Disease
DX: Z01.818 Encounter for other preprocedural examination (principal); I48.0 Paroxysmal atrial fibrillation; Z87.19 Personal history of other diseases of the digestive system; Z20.822 Contact with and (suspected) exposure to COVID-19
CPT/HCPCS: 80053; 85027; 85610; 85730; 86147; 86850; 86900; 86901; 86920; U0003; U0005; 82565; 93005; 93010

== ENCOUNTER 2021-02-06 10:26 | Day surgery (SDC) | payer MEDICARE, OTHER ==
[2021-02-03 09:50] VITALS: BMI 27.4
[2021-02-06 11:19] LABS: #Eosinphils 0.3 thou/uL (0.0-0.7); #Lymphocytes 1.3 thou/uL (1.20-3.40); #Monocytes 0.7 thou/uL (0.11-0.59); #Neutrophils 4.4 thou/uL (1.40-6.50); %Basophils 0.2 % (0.0-1.0); %Eosinophils 3.9 % (0.0-10.0); %Lymphocytes 19.8 % (21.0-51.0); %Monocytes 10.3 % (0.0-10.0); %Neutrophils 65.7 % (42.0-75.0); Hemoglobin 11.3 g/dL (12.0-16.0); Mean Corpuscular HGB CONC 31.2 g/dL (32.0-36.0); Mean Corpuscular Volume 89.6 fL (78.0-98.0); Mean Platelet Volume 7.9 fL (7.4-10.4); Platelet Count 264 thou/uL (130-400); RBC Distribution Width 12.8 % (11.5-14.5); Red Blood Cell (RBC) Count 4.05 mill/uL (4.20-5.40); White Blood Cell (WBC) Count 6.7 thou/uL (4.8-10.8)
[2021-02-06 11:35] LABS: INR-International Normal Ratio 1.1; Prothrombin Time 14.1 sec (12.0-14.7)
[2021-02-06] MEDS ORDERED: PROPOFOL 20 ML ONE (14:03)
[2021-02-07] MEDS ORDERED: Clopidogrel Bisulfate 75 MG TAB PO SCH (09:00)
== END 2021-02-06 14:25 | disposition home or self-care (01) ==
LOC: SDC 10:26
PROVIDERS: ATTEND Internal Medicine Cardiovascular Disease
PROC: B246ZZ4 Ultrasonography of Right and Left Heart, Transesophageal (ICD-10-PCS; principal; 2021-02-06)
DX: I48.19 Other persistent atrial fibrillation (principal); I11.9 Hypertensive heart disease without heart failure; I08.1 Rheumatic disorders of both mitral and tricuspid valves; I48.4 Atypical atrial flutter; I25.10 Atherosclerotic heart disease of native coronary artery without angina pectoris; E78.5 Hyperlipidemia, unspecified; Z79.01 Long term (current) use of anticoagulants; Z79.899 Other long term (current) drug therapy; Z95.810 Presence of automatic (implantable) cardiac defibrillator; Z95.818 Presence of other cardiac implants and grafts; Z95.1 Presence of aortocoronary bypass graft
CPT/HCPCS: 85025; 85610; 93312; J2704

== ENCOUNTER 2023-02-20 19:43 | Inpatient (IN) | payer MEDICARE, OTHER ==
[2023-02-20 20:30] LABS: #Monocytes 0.9 thou/uL (0.11-0.59); #Neutrophils 8.5 thou/uL (1.40-6.50); %Basophils 0.4 % (0.0-1.0); %Eosinophils 0.4 % (0.0-10.0); %Monocytes 9.5 % (0.0-10.0); %Neutrophils 86.3 % (42.0-75.0); Hematocrit 37.4 % (36.0-47.0); Hemoglobin 12.3 g/dL (12.0-16.0); Mean Corpuscular HGB CONC 32.9 g/dL (32.0-36.0); Mean Corpuscular Hemoglobin 28.4 pg (27.0-31.0); Mean Corpuscular Volume 86.4 fl (78.0-98.0); Platelet Count 220 10x3/uL (130-400); RBC Distribution Width 14.1 % (11.5-14.5); Red Blood Cell (RBC) Count 4.33 mill/uL (4.20-5.40); White Blood Cell (WBC) Count 9.9 10x3/uL (4.8-10.8)
[2023-02-20 21:01] LABS: ALT (SGPT) 13 U/L (8-55); AST (SGOT) 27 U/L (5-34); Alkaline Phosphatase 79 U/L (40-110); Anion Gap 12 mmol/L (10-20); BUN (Urea Nitrogen) 12 mg/dL (9.8-20.1); Bilirubin, Total 0.6 mg/dL (0.2-1.2); Calc. Creatinine Clearance 0 mL/min (70-130); Calcium 9.1 mg/dL (7.8-10.44); Carbon Dioxide 25 mmol/L (23-31); Chloride 99 mmol/L (98-107); Estimated GFR 53; Glucose 102 mg/dL (83-110); Lipase 17 U/L (8-78); Magnesium 1.9 mg/dL (1.6-2.6); Potassium 4.2 mmol/L (3.5-5.1); Sodium 132 mmol/L (136-145)
[2023-02-20 21:04] LABS: Troponin I 0.013 ng/mL (< 0.028)
[2023-02-20 22:04] LABS: SARS-CoV-2 NAA Rapid Test DETECTED (NotDetected)
[2023-02-20] MEDS ORDERED: REMDESIVIR 200 MG in Sodium Chloride 0.9% 250 ML 210 ML IV SCH (23:45)
[2023-02-20] MEDS ORDERED: Fluticasone Propionate Nasal Spray 16 gm Bottle NASAL PRN (23:47)
[2023-02-20] MEDS ORDERED: Nitroglycerin 0.4 MG TAB (25 Tab Bottle) SL PRN (23:47)
[2023-02-20] MEDS ORDERED: Furosemide 20 MG TAB PO PRN (23:47)
[2023-02-20] MEDS ORDERED: Albuterol 200 PUFF (6.7GM INHALER) INH PRN (23:49)
[2023-02-20] MEDS ORDERED: Benzonatate 100 MG CAP PO PRN (23:49)
[2023-02-20] MEDS ORDERED: Acetaminophen 325 MG TAB PO PRN (23:49)
[2023-02-20] MEDS ORDERED: Acetaminophen 650 MG Suppository PR PRN (23:49)
[2023-02-21] MEDS ORDERED: Azithromycin 500 MG in Sodium Chloride 0.9% 250 ML 250 ML IVPB SCH (00:30)
[2023-02-21] MEDS ORDERED: cefTRIAXone\\ROCEPHIN 1 GM in Sodium Chloride 0.9% 100 ML IVPB SCH (01:00)
[2023-02-21 02:37] VITALS: BMI 28.0
[2023-02-21] MEDS ORDERED: REMDESIVIR 200 MG in Sodium Chloride 0.9% 250 ML 210 ML IV SCH (03:00)
[2023-02-21] MEDS: Dexamethasone 4 mg/ml Vial SLOW IVP SCH ×2 (03:09→08:53)
[2023-02-21 04:52] LABS: #Monocytes 0.9 thou/uL (0.11-0.59); #Neutrophils 5.2 thou/uL (1.40-6.50); %Basophils 0.3 % (0.0-1.0); %Eosinophils 0.3 % (0.0-10.0); %Lymphocytes 4.1 % (21.0-51.0); %Monocytes 14.2 % (0.0-10.0); %Neutrophils 80.6 % (42.0-75.0); Hematocrit 35.1 % (36.0-47.0); Hemoglobin 11.4 g/dL (12.0-16.0); Mean Corpuscular HGB CONC 32.5 g/dL (32.0-36.0); Mean Corpuscular Hemoglobin 28.1 pg (27.0-31.0); Mean Corpuscular Volume 86.7 fl (78.0-98.0); Mean Platelet Volume 10.9 fL (7.4-10.4); Platelet Count 177 10x3/uL (130-400); RBC Distribution Width 14.5 % (11.5-14.5); Red Blood Cell (RBC) Count 4.05 mill/uL (4.20-5.40); White Blood Cell (WBC) Count 6.4 10x3/uL (4.8-10.8)
[2023-02-21 05:16] LABS: ALT (SGPT) 12 U/L (8-55); AST (SGOT) 25 U/L (5-34); Albumin 3.5 g/dL (3.4-4.8); Alkaline Phosphatase 68 U/L (40-110); Anion Gap 12 mmol/L (10-20); BUN (Urea Nitrogen) 11 mg/dL (9.8-20.1); Bilirubin, Direct 0.2 mg/dL (0.1-0.3); Bilirubin, Total 0.4 mg/dL (0.2-1.2); Calc. Creatinine Clearance 60 mL/min (70-130); Calcium 8.4 mg/dL (7.8-10.44); Carbon Dioxide 25 mmol/L (23-31); Chloride 102 mmol/L (98-107); Estimated GFR 68; Glucose 104 mg/dL (83-110); Potassium 3.9 mmol/L (3.5-5.1); Protein, Total 6.3 g/dL (5.8-8.1); Sodium 135 mmol/L (136-145)
[2023-02-21 05:28] LABS: Troponin I 0.014 ng/mL (< 0.028)
[2023-02-21] MEDS: Gabapentin 300 MG CAP PO SCH ×3 (06:47→21:25)
[2023-02-21] MEDS: Digoxin 0.125 MG TAB PO SCH (08:53)
[2023-02-21] MEDS: Mirtazapine 15 MG TAB PO SCH (08:53)
[2023-02-21] MEDS: Isosorbide Mononitrate 30 MG ER.TAB PO SCH (08:53)
[2023-02-21] MEDS: Ascorbic Acid 500 mg Chewable Tablet PO SCH (08:53)
[2023-02-21] MEDS: Clopidogrel Bisulfate 75 MG TAB PO SCH (08:54)
[2023-02-21] MEDS: Furosemide 20 MG TAB PO SCH (08:54)
[2023-02-21] MEDS: Zinc Sulfate 220 MG CAP PO SCH (08:54)
[2023-02-21] MEDS: Morphine ER 15 MG TAB PO PRN ×2 (08:54→21:30)
[2023-02-21] MEDS: Cholecalciferol (Vitamin D3) 400 UNITS TAB PO SCH (08:54)
[2023-02-21] MEDS: Venlafaxine 75 MG TAB PO SCH (08:54)
[2023-02-21] MEDS ORDERED: Cefdinir 300 MG CAP PO SCH (13:15)
[2023-02-21] MEDS: Cefdinir 300 MG CAP PO SCH (21:24)
[2023-02-21] MEDS: Atorvastatin Calcium 20 MG TAB PO SCH (21:25)
[2023-02-21] MEDS: REMDESIVIR 100 MG in Sodium Chloride 0.9% 250 ML 230 ML IV SCH (21:26)
[2023-02-22] MEDS: Dexamethasone 4 mg/ml Vial SLOW IVP SCH ×2 (00:06→09:16)
[2023-02-22] MEDS: Gabapentin 300 MG CAP PO SCH ×3 (04:58→21:00)
[2023-02-22 05:43] LABS: #Monocytes 0.3 thou/uL (0.11-0.59); #Neutrophils 2.4 thou/uL (1.40-6.50); %Lymphocytes 10.7 % (21.0-51.0); %Monocytes 10.4 % (0.0-10.0); %Neutrophils 78.3 % (42.0-75.0); Hematocrit 32.9 % (36.0-47.0); Hemoglobin 10.5 g/dL (12.0-16.0); Mean Corpuscular HGB CONC 31.9 g/dL (32.0-36.0); Mean Corpuscular Hemoglobin 28.5 pg (27.0-31.0); Mean Corpuscular Volume 89.4 fl (78.0-98.0); Platelet Count 188 10x3/uL (130-400); RBC Distribution Width 14.6 % (11.5-14.5); Red Blood Cell (RBC) Count 3.68 mill/uL (4.20-5.40); White Blood Cell (WBC) Count 3.1 10x3/uL (4.8-10.8)
[2023-02-22 06:16] LABS: ALT (SGPT) 15 U/L (8-55); AST (SGOT) 31 U/L (5-34); Albumin 3.3 g/dL (3.4-4.8); Alkaline Phosphatase 65 U/L (40-110); Anion Gap 12 mmol/L (10-20); BUN (Urea Nitrogen) 18 mg/dL (9.8-20.1); Bilirubin, Total 0.3 mg/dL (0.2-1.2); CRP (Inflammatory) 3.67 mg/dL (= or < 0.5); Calc. Creatinine Clearance 53 mL/min (70-130); Calcium 8.5 mg/dL (7.8-10.44); Carbon Dioxide 26 mmol/L (23-31); Chloride 102 mmol/L (98-107); Estimated GFR 59; Globulin 2.7 g/dL (2.4-3.5); Glucose 130 mg/dL (83-110); Sodium 136 mmol/L (136-145)
[2023-02-22] MEDS: Cholecalciferol (Vitamin D3) 400 UNITS TAB PO SCH (09:15)
[2023-02-22] MEDS: Digoxin 0.125 MG TAB PO SCH (09:15)
[2023-02-22] MEDS: Isosorbide Mononitrate 30 MG ER.TAB PO SCH (09:15)
[2023-02-22] MEDS: Zinc Sulfate 220 MG CAP PO SCH (09:15)
[2023-02-22] MEDS: Clopidogrel Bisulfate 75 MG TAB PO SCH (09:15)
[2023-02-22] MEDS: Furosemide 20 MG TAB PO SCH (09:15)
[2023-02-22] MEDS: Cefdinir 300 MG CAP PO SCH ×2 (09:15→20:57)
[2023-02-22] MEDS: Mirtazapine 15 MG TAB PO SCH (09:15)
[2023-02-22] MEDS: Venlafaxine 75 MG TAB PO SCH (09:16)
[2023-02-22] MEDS: Ascorbic Acid 500 mg Chewable Tablet PO SCH (09:16)
[2023-02-22] MEDS ORDERED: guaiFENesin ER 600 MG TAB PO SCH (10:00)
[2023-02-22] MEDS: guaiFENesin ER 600 MG TAB PO SCH (20:57)
[2023-02-22] MEDS: Aspirin 81 mg Enteric Coated Tablet PO SCH (20:59)
[2023-02-22] MEDS: REMDESIVIR 100 MG in Sodium Chloride 0.9% 250 ML 230 ML IV SCH (21:00)
[2023-02-22] MEDS: Atorvastatin Calcium 20 MG TAB PO SCH (21:00)
[2023-02-22] MEDS ORDERED: Carvedilol 25 MG TAB PO SCH (21:00)
[2023-02-23] MEDS ORDERED: Benzonatate 100 MG CAP PO SCH (04:00)
[2023-02-23] MEDS: Gabapentin 300 MG CAP PO SCH ×3 (05:50→21:06)
[2023-02-23] MEDS: Morphine ER 15 MG TAB PO PRN ×2 (05:52→21:14)
[2023-02-23 05:56] LABS: #Monocytes 0.7 thou/uL (0.11-0.59); #Neutrophils 2.8 thou/uL (1.40-6.50); %Basophils 0.2 % (0.0-1.0); %Lymphocytes 17.8 % (21.0-51.0); %Monocytes 16.9 % (0.0-10.0); %Neutrophils 64.9 % (42.0-75.0); Hematocrit 34.1 % (36.0-47.0); Hemoglobin 10.9 g/dL (12.0-16.0); Mean Corpuscular Hemoglobin 28.5 pg (27.0-31.0); Mean Platelet Volume 11.1 fL (7.4-10.4); Platelet Count 201 10x3/uL (130-400); RBC Distribution Width 14.7 % (11.5-14.5); Red Blood Cell (RBC) Count 3.83 mill/uL (4.20-5.40); White Blood Cell (WBC) Count 4.4 10x3/uL (4.8-10.8)
[2023-02-23] MEDS: Cholecalciferol 1,000 UNITS (25 MCG) TAB PO SCH (08:47)
[2023-02-23] MEDS: Ascorbic Acid 500 mg Chewable Tablet PO SCH (08:47)
[2023-02-23] MEDS: Clopidogrel Bisulfate 75 MG TAB PO SCH (08:47)
[2023-02-23] MEDS: Furosemide 20 MG TAB PO SCH (08:47)
[2023-02-23] MEDS: Isosorbide Mononitrate 30 MG ER.TAB PO SCH (08:47)
[2023-02-23] MEDS: Venlafaxine 75 MG TAB PO SCH (08:47)
[2023-02-23] MEDS: Cefdinir 300 MG CAP PO SCH ×2 (08:47→21:06)
[2023-02-23] MEDS: Zinc Sulfate 220 MG CAP PO SCH (08:47)
[2023-02-23] MEDS: guaiFENesin ER 600 MG TAB PO SCH ×2 (08:48→21:06)
[2023-02-23] MEDS: Digoxin 0.125 MG TAB PO SCH (08:48)
[2023-02-23] MEDS: Mirtazapine 15 MG TAB PO SCH (08:48)
[2023-02-23] MEDS: Dexamethasone 4 mg/ml Vial SLOW IVP SCH (08:50)
[2023-02-23] MEDS ORDERED: Polyethylene Glycol 3350 17 GM Packet PO PRN (09:00)
[2023-02-23] MEDS: Aspirin 81 mg Enteric Coated Tablet PO SCH (21:06)
[2023-02-23] MEDS: Atorvastatin Calcium 20 MG TAB PO SCH (21:06)
[2023-02-23] MEDS: REMDESIVIR 100 MG in Sodium Chloride 0.9% 250 ML 230 ML IV SCH (21:07)
[2023-02-24] MEDS ORDERED: Melatonin 3 MG TAB PO PRN (00:04)
[2023-02-24] MEDS ORDERED: Cyclobenzaprine 10 MG TAB PO SCH (00:15)
[2023-02-24] MEDS: Gabapentin 300 MG CAP PO SCH ×3 (05:02→21:09)
[2023-02-24] MEDS ORDERED: FLU VACC QS2023(65UP)/MF59C/PF 60 MCG/0.5 ML SYRINGE IM ONE (05:15)
[2023-02-24 06:56] LABS: ALT (SGPT) 18 U/L (8-55); AST (SGOT) 36 U/L (5-34); Albumin 3.2 g/dL (3.4-4.8); Alkaline Phosphatase 59 U/L (40-110); Anion Gap 13 mmol/L (10-20); BUN (Urea Nitrogen) 24 mg/dL (9.8-20.1); Bilirubin, Total 0.3 mg/dL (0.2-1.2); CRP (Inflammatory) 1.07 mg/dL (= or < 0.5); Calc. Creatinine Clearance 52 mL/min (70-130); Calcium 8.4 mg/dL (7.8-10.44); Carbon Dioxide 28 mmol/L (23-31); Chloride 104 mmol/L (98-107); Estimated GFR 58; Globulin 2.8 g/dL (2.4-3.5); Glucose 92 mg/dL (83-110); Potassium 3.6 mmol/L (3.5-5.1); Sodium 141 mmol/L (136-145)
[2023-02-24] MEDS: Cholecalciferol 1,000 UNITS (25 MCG) TAB PO SCH (09:42)
[2023-02-24] MEDS: Cefdinir 300 MG CAP PO SCH (09:42)
[2023-02-24] MEDS: Furosemide 20 MG TAB PO SCH (09:42)
[2023-02-24] MEDS: guaiFENesin ER 600 MG TAB PO SCH ×2 (09:42→21:09)
[2023-02-24] MEDS: Zinc Sulfate 220 MG CAP PO SCH (09:43)
[2023-02-24] MEDS: Isosorbide Mononitrate 30 MG ER.TAB PO SCH (09:43)
[2023-02-24] MEDS: Venlafaxine 75 MG TAB PO SCH (09:43)
[2023-02-24] MEDS: Ascorbic Acid 500 mg Chewable Tablet PO SCH (09:43)
[2023-02-24] MEDS: Clopidogrel Bisulfate 75 MG TAB PO SCH (09:43)
[2023-02-24] MEDS: Digoxin 0.125 MG TAB PO SCH (09:43)
[2023-02-24] MEDS: Dexamethasone 4 mg/ml Vial SLOW IVP SCH (09:45)
[2023-02-24] MEDS ORDERED: Mirtazapine 15 MG TAB PO SCH (21:00)
[2023-02-24] MEDS: REMDESIVIR 100 MG in Sodium Chloride 0.9% 250 ML 230 ML IV SCH (21:08)
[2023-02-24] MEDS: Atorvastatin Calcium 20 MG TAB PO SCH (21:09)
[2023-02-24] MEDS: Aspirin 81 mg Enteric Coated Tablet PO SCH (21:09)
[2023-02-24] MEDS ORDERED: Benzonatate 100 MG CAP PO PRN (22:35)
[2023-02-25] MEDS: Gabapentin 300 MG CAP PO SCH (06:06)
[2023-02-25 07:56] VITALS: BP 187/83; TEMP 97.3
[2023-02-25] MEDS: Digoxin 0.125 MG TAB PO SCH (08:43)
[2023-02-25] MEDS: Isosorbide Mononitrate 30 MG ER.TAB PO SCH (08:43)
[2023-02-25] MEDS: Furosemide 20 MG TAB PO SCH (08:44)
[2023-02-25] MEDS: guaiFENesin ER 600 MG TAB PO SCH (08:44)
[2023-02-25] MEDS: Clopidogrel Bisulfate 75 MG TAB PO SCH (08:45)
[2023-02-25] MEDS: Zinc Sulfate 220 MG CAP PO SCH (08:45)
[2023-02-25] MEDS: Ascorbic Acid 500 mg Chewable Tablet PO SCH (08:45)
[2023-02-25] MEDS: Venlafaxine 75 MG TAB PO SCH (08:45)
[2023-02-25] MEDS: Dexamethasone 4 mg/ml Vial SLOW IVP SCH (08:46)
[2023-02-25] MEDS: Cholecalciferol 1,000 UNITS (25 MCG) TAB PO SCH (08:55)
== END 2023-02-25 11:11 | disposition home or self-care (01) | DRG 177 ==
LOC: ERS 19:43 → 2NO 23:47 → T4-B 02-21 15:42
PROVIDERS: ADMIT Student in an Organized Health Care Education/Training Program; ATTEND Family Medicine
PROC: XW033E5 Introduction of Remdesivir Anti-infective into Peripheral Vein, Percutaneous Approach, New Technology Group 5 (ICD-10-PCS; principal; 2023-02-20)
PROC: 3E0333Z Introduction of Anti-inflammatory into Peripheral Vein, Percutaneous Approach (ICD-10-PCS; 2023-02-20)
PROC: 8E0ZXY6 Isolation (ICD-10-PCS; 2023-02-20)
DX: U07.1 COVID-19 (principal); J12.82 Pneumonia due to coronavirus disease 2019; J96.01 Acute respiratory failure with hypoxia; E87.1 Hypo-osmolality and hyponatremia; I50.32 Chronic diastolic (congestive) heart failure; I25.810 Atherosclerosis of coronary artery bypass graft(s) without angina pectoris; I13.0 Hypertensive heart and chronic kidney disease with heart failure and stage 1 through stage 4 chronic kidney disease, or unspecified chronic kidney disease; E78.00 Pure hypercholesterolemia, unspecified; Z96.653 Presence of artificial knee joint, bilateral; F32.A Depression, unspecified; K44.9 Diaphragmatic hernia without obstruction or gangrene; I25.10 Atherosclerotic heart disease of native coronary artery without angina pectoris; M19.90 Unspecified osteoarthritis, unspecified site; I48.0 Paroxysmal atrial fibrillation; G89.29 Other chronic pain; D64.9 Anemia, unspecified; N18.2 Chronic kidney disease, stage 2 (mild); Z95.1 Presence of aortocoronary bypass graft; Z98.890 Other specified postprocedural states; Z79.899 Other long term (current) drug therapy; Z79.01 Long term (current) use of anticoagulants; Z95.0 Presence of cardiac pacemaker
CPT/HCPCS: 36415; 71045; 80048; 80053; 80076; 83605; 83690; 83735; 84145; 84443; 84484; 85025; 86140; 87040; 87804; 93005; 96360; J0248; J0456; J0696; J1100; J3490; J7050; U0002